=== PATIENT | female | born 1940 | race Caucasian/White ===

== ENCOUNTER 2016-03-03 11:12 | Emergency (ER) | payer MEDICARE, BC ==
[2016-03-03] MEDS ORDERED: KETOROLAC 30 MG/ML VIAL (J1885) As Ordered ONE (11:41)
[2016-03-03] MEDS ORDERED: ONDANSETRON 4MG/2ML VIAL (J2405) As Ordered ONE (11:41)
[2016-03-03 12:02] LABS: BASO % 0.2 % (0.0-1.0); EOS # 0.1 K/mm3 (0.0-0.50); EOS % 1.2 % (0.0-3.0); LARGE UNSTAINED CELL # 0.2 K/mm3 (0.0-0.4); LARGE UNSTAINED CELL % 1.3 % (0.0-4.0); LYMPH # 1.2 K/mm3 (1.5-4.5); LYMPH % 10.6 % (24.0-44.0); MEAN CORPUSCULAR HEMOGLOBIN 29.8 pg (27.0-33.0); MEAN CORPUSCULAR VOLUME 87.6 fl (80.0-96.0); MONO # 0.6 K/mm3 (0.0-0.8); MONO % 5.1 % (0.0-5.0); NEUTROPHILS # 9.3 K/mm3 (1.8-7.7); NEUTROPHILS % 81.7 % (36.0-66.0); PLATELET COUNT, AUTOMATED 262 k/mm3 (150-450); RED CELL DISTRIBUTION WIDTH 12.8 % (11.5-14.5); WHITE BLOOD COUNT 11.4 K/mm3 (4.0-10.0)
[2016-03-03 12:11] LABS: INR 1.04
[2016-03-03 12:23] LABS: ALBUMIN 3.7 GM/DL (3.2-5.2); ALBUMIN/GLOBULIN RATIO 1.16 (1.00-1.93); BILIRUBIN,DIRECT 0.1 MG/DL (0.0-0.2); BILIRUBIN,TOTAL 0.3 MG/DL (0.2-1.0); CALCIUM LEVEL 8.9 MG/DL (8.8-10.2); CREATININE FOR GFR 1.01 MG/DL (0.55-1.02); GLOMERULAR FILTRATION RATE 56.6 (>39); POTASSIUM SERUM 3.9 MEQ/L (3.5-5.1); TOTAL PROTEIN 6.9 GM/DL (6.4-8.2)
--- NOTE | 2016-03-03 12:29 | REP ---
CT ABDOMEN AND PELVIS WITHOUT IV OR ORAL CONTRAST: RENAL STONE PROTOCOL. History: Generalized abdominal pain. Comparison CT study November 14, 2013. Findings: Preliminary digital director of tax services radiograph is unremarkable. Lung window settings demonstrate that the lung bases are clear. There is no evidence of pleural effusion or upper abdominal ascites. The liver and spleen are normal in size and remain normal in texture. The gallbladder is unremarkable. No adrenal lesion is seen on either side. Pancreas has a normal appearance. There is a descending duodenal diverticulum. There is pancolonic diverticulosis. There is an area of mural thickening and mild pericolonic fat stranding in the sigmoid colon in the left pelvis consistent with diverticulitis. No abscess is seen. No evidence of free air seen. No evidence of free intraperitoneal air, abscess, or abnormal fluid collection. Normal caliber aorta is seen with atherosclerotic calcification. The kidneys are morphologically intact. No intrarenal calculus or hydronephrosis is seen on either side. No bladder calculus is observed. No bony destructive lesion is seen. No abdominal wall defect is observed. Impression: 1. Pancolonic diverticulosis. 2. Findings consistent with early diverticulitis in the sigmoid colon in the left mid pelvis. No abscess or free air. Signed by Nicholas Minor MD 03/03/2016 01:12 P
--- NOTE | 2016-03-03 13:34 | EDDOCDS ---
Nurse's Notes [facility] Name: Gisele Enriquez Age: 76 yrs Sex: Female : 1940 Arrival Date: 03/03/2016 Time: 11:12 Bed I2 / M2 Private MD: Joe Pérez MD Diagnosis: Diverticulitis of intestine, part unspecified, without perforation or abscess with bleeding Presentation: 03/03 11:16 Presenting complaint: Patient states: c/o n/v/d and abdominal pain for 5 days. Adult ead Sepsis Screening: The patient does not have new or worsening altered mentation. Patient's respiratory rate is less than 22. Systolic blood pressure is greater than 100. Patient has a qSOFA score of 0- Negative Sepsis Screen. Suicide/Homicide risk assessment- the patient denies having any suicidal and/or homicidal ideations and does not present with any other emotional, behavioral or mental health complaints. Status: Patient is not a bellhop service captain or dependent. Transition of care: patient was not received from another setting of care. 11:16 Acuity: INDIRA Level 3 ead 11:16 Method Of Arrival: Walkin/Carried/Asstd ead Triage Assessment: 11:18 General: Appears in no apparent distress, comfortable, well nourished, well groomed, ead Behavior is appropriate for age, cooperative, pleasant. Pain: Location: abdomen Pain currently is 3 out of 10 on a pain scale. Neurological: No deficits noted. Respiratory: Airway is patent Respiratory effort is even, unlabored. GI: Reports lower abdominal pain, nausea, vomiting. Derm: Skin is pink, warm & dry. Historical: - Allergies: no known allergies; - Home Meds: 1. Synthroid 75 mcg Oral tab 1 tab once daily (Last dose: 03/03/2016) 2. Vitamin D Oral 1,000 unit daily (Last dose: 03/03/2016) - PMHx: skin cancer; Hyperthyroidism; Diverticulitis; - PSHx: Hysterectomy; Appendectomy; - Social history: Smoking status: Patient states former smoker of tobacco. No barriers to communication noted, The patient speaks fluent Iraqi, Speaks appropriately for age. - Family history: Not pertinent. - : The pt / caregiver states he / she is not on anticoagulants. Home medication list is obtained from the patient. - Exposure Risk Screening:: None identified. Screenin:01 Screening information is obtained from the patient. Fall risk: No risks identified. dls Assistance ADL's: requires no assistance with activities of daily living. Abuse/DV Screen: The patient / caregiver reports he/she is: not in a situation that causes fear, pain or injury. Nutritional screening: No deficits noted. Advance Directives: Currently, there is no health care proxy. There is no active DNR order. There is no living will. There is no Power of Urban Planner. Advance directive information has not previously been placed in an [facility] medical record. home support is adequate. Assessment: 11:59 General: Appears in no apparent distress, slender, unkempt, well nourished, well dls groomed, Behavior is cooperative. Neurological: No deficits noted. EENT: No deficits noted. Cardiovascular: No deficits noted. Respiratory: Airway is patent Respiratory effort is even, unlabored, Respiratory pattern is regular, symmetrical, Breath sounds are clear bilaterally. GI: Reports lower abdominal pain, nausea, vomiting. : No deficits noted. Derm: No deficits noted. Musculoskeletal: No deficits noted. Vital Signs: 11:14 BP 146 / 78; Pulse 65; Resp 18 S; Temp 99.9(O); Pulse Ox 98% on R/A; Weight 67.59 kg gr2 (R); Height 5 ft. 6 in. (167.64 cm) (R); Pain 6/10; 13:16 BP 135 / 61 LA Sitting (auto/lg); Pulse 88; Resp 16; Temp 96.7(O); Pulse Ox 96% on R/A; rs6 Pain 2/10; 11:14 Body Mass Index 24.05 (67.59 kg, 167.64 cm) gr2 Vitals: 11:14 Log In Time: March 03, 2016 at 11:14. gr2 ED Course: 11:14 Patient visited by Luma Galaviz. gr2 11:14 Joe Pérez is Private Physician. gr2 11:14 Patient moved to Waiting gr2 11:15 Patient visited by Luma Galaviz. gr2 11:15 Patient moved to Pre RCE gr2 11:17 Triage Initiated ead 11:21 Patient moved to Triage 1 ead 11:29 [facility] ke 11:29 Patient visited by Rui Coates FNP. ke 11:29 Patient visited by Rui Coates FNP. ke 11:36 Loida Stacy, RN is Primary Nurse. rs3 11:36 Patient moved to I2 / M2 rs3 11:57 Amylase Sent. dls 11:57 Basic Metabolic Profile Sent. dls 11:57 CBC with Diff Sent. dls 11:57 Lipase Sent. dls 11:57 Liver Profile Sent. dls 11:57 Prothrombin Time Profile\E\INR Sent. dls 11:59 Inserted saline lock: 20 gauge in right antecubital area and blood collected. The dls patient tolerated the procedure well. No procedures done that require assistance. 12:01 The patient / caregiver is instructed regarding the plan of care and ED course. Patient ajit has correct armband on for positive identification. Placed in gown. Bed in low position. Call light in reach. 12:04 Patient visited by Rui Coates FNP. ke 12:37 Patient visited by Rui Coates FNP. ke 12:42 CT ABD & PELVIS: No Contrast Returned. EDMS 13:09 Patient visited by Rui Coates FNP. ke 13:16 Joe Pérez is Referral Physician. ke 13:17 Patient visited by Dinora Finney PCA. rs6 13:30 Discontinued IV lock intact, bleeding controlled, pressure dressing applied, No dls redness/swelling at site. Administered Medications: 11:57 Drug: NS 0.9% 1000 ml [sodium chloride 0.9 % intravenous solution] Route: IV; Rate: dls bolus; Site: right antecubital; 13:31 Follow up: IV Status: Completed infusion dls 11:58 Drug: Ondansetron 4 mg [ondansetron HCl 2 mg/mL intravenous solution (2 mL)] Route: dls IVP; Site: right antecubital; 13:31 Follow up: Response: No Adverse Reaction dls 11:58 Drug: ketorolac 30 mg [ketorolac 30 mg/mL (1 mL) injection solution (1 mL)] Route: IVP; dls Site: right antecubital; 13:31 Follow up: Response: No Adverse Reaction dls Order Results: Lab Order: Amylase; SPEC'M 03/03/16 11:55 Test: AMYLASE; Value: 42; Range: 25-115; Units: U/L; Status: F Lab Order: Basic Metabolic Profile; SPEC'M 03/03/16 11:55 Test: GLUCOSE, FASTING; Value: 114; Range: 83-110; Abnormal: Above high normal; Units: MG/DL; Status: F Test: BLOOD UREA NITROGEN; Value: 15; Range: 7-18; Units: MG/DL; Status: F Test: CREATININE FOR GFR; Value: 1.01; Range: 0.55-1.02; Units: MG/DL; Status: F Test: GLOMERULAR FILTRATION RATE; Value: 56.6; Range: >39; Status: F Test: SODIUM LEVEL; Value: 142; Range: 136-145; Units: MEQ/L; Status: F Test: POTASSIUM SERUM; Value: 3.9; Range: 3.5-5.1; Units: MEQ/L; Status: F Test: CHLORIDE LEVEL; Value: 104; Range: 98-107; Units: MEQ/L; Status: F Test: CARBON DIOXIDE LEVEL; Value: 26; Range: 21-32; Units: MEQ/L; Status: F Test: ANION GAP; Value: 12; Range: 8-16; Units: MEQ/L; Status: F Test: CALCIUM LEVEL; Value: 8.9; Range: 8.8-10.2; Units: MG/DL; Status: F Test Note: ; Units are mL/min/1.73 m2 Chronic Kidney Disease Staging per NKF: Stage I & II GFR >=60 Normal to Mildly Decreased Stage III GFR 30-59 Moderately Decreased Stage IV GFR 15-29 Severely Decreased Stage V GFR <15 Very Little GFR Left ESRD GFR <15 on SYSTEMS CHECKOUT MECHANIC Lab Order: CBC with Diff; SPEC'M 03/03/16 11:55 Test: WHITE BLOOD COUNT; Value: 11.4; Range: 4.0-10.0; Abnormal: Above high normal; Units: K/mm3; Status: F Test: RED BLOOD COUNT; Value: 4.69; Range: 4.00-5.40; Units: M/mm3; Status: F Test: HEMOGLOBIN; Value: 13.9; Range: 12.0-16.0; Units: g/dl; Status: F Test: HEMATOCRIT; Value: 41.0; Range: 36.0-47.0; Units: %; Status: F Test: MEAN CORPUSCULAR VOLUME; Value: 87.6; Range: 80.0-96.0; Units: fl; Status: F Test: MEAN CORPUSCULAR HEMOGLOBIN; Value: 29.8; Range: 27.0-33.0; Units: pg; Status: F Test: MEAN CORPUSCULAR HGB CONC; Value: 34.0; Range: 32.0-36.5; Units: g/dl; Status: F Test: RED CELL DISTRIBUTION WIDTH; Value: 12.8; Range: 11.5-14.5; Units: %; Status: F Test: PLATELET COUNT, AUTOMATED; Value: 262; Range: 150-450; Units: k/mm3; Status: F Test: NEUTROPHILS %; Value: 81.7; Range: 36.0-66.0; Abnormal: Above high normal; Units: %; Status: F Test: LYMPH %; Value: 10.6; Range: 24.0-44.0; Abnormal: Below low normal; Units: %; Status: F Test: MONO %; Value: 5.1; Range: 0.0-5.0; Abnormal: Above high normal; Units: %; Status: F Test: EOS %; Value: 1.2; Range: 0.0-3.0; Units: %; Status: F Test: BASO %; Value: 0.2; Range: 0.0-1.0; Units: %; Status: F Test: LARGE UNSTAINED CELL %; Value: 1.3; Range: 0.0-4.0; Units: %; Status: F Test: NEUTROPHILS #; Value: 9.3; Range: 1.8-7.7; Abnormal: Above high normal; Units: K/mm3; Status: F Test: LYMPH #; Value: 1.2; Range: 1.5-4.5; Abnormal: Below low normal; Units: K/mm3; Status: F Test: MONO #; Value: 0.6; Range: 0.0-0.8; Units: K/mm3; Status: F Test: EOS #; Value: 0.1; Range: 0.0-0.50; Units: K/mm3; Status: F Test: BASO #; Value: 0.0; Range: 0.0-0.2; Units: K/mm3; Status: F Test: LARGE UNSTAINED CELL #; Value: 0.2; Range: 0.0-0.4; Units: K/mm3; Status: F Lab Order: Lipase; [facility]' 03/03/16 11:55 Test: LIPASE; Value: 144; Range: 73-393; Units: U/L; Status: F Lab Order: Liver Profile; SPEC' 03/03/16 11:55 Test: AST/SGOT; Value: 27; Range: 15-37; Units: U/L; Status: F Test: ALT/SGPT; Value: 26; Range: 12-78; Units: U/L; Status: F Test: ALKALINE PHOSPHATASE; Value: 97; Range: 45-117; Units: U/L; Status: F Test: BILIRUBIN,TOTAL; Value: 0.3; Range: 0.2-1.0; Units: MG/DL; Status: F Test: BILIRUBIN,DIRECT; Value: 0.1; Range: 0.0-0.2; Units: MG/DL; Status: F Test: TOTAL PROTEIN; Value: 6.9; Range: 6.4-8.2; Units: GM/DL; Status: F Test: ALBUMIN; Value: 3.7; Range: 3.2-5.2; Units: GM/DL; Status: F Test: ALBUMIN/GLOBULIN RATIO; Value: 1.16; Range: 1.00-1.93; Status: F Lab Order: Prothrombin Time Profile\E\INR; SPEC 03/03/16 11:55 Test: PROTHROMBIN TIME; Value: 13.7; Range: 12.3-14.5; Units: SECONDS; Status: F Test: INR; Value: 1.04; Status: F Test Note: ; THERAPUTIC HUMAN INR VALUES INDICATIONS NORMAL RANGES PROPHYLAXIS/TREATMENT OF: VENOUS THROMBOSIS 2.0-3.0 PULMONARY EMBOLISM 2.0-3.0 PREVENTION OF SYSTEMIC EMBOLISM FROM: TISSUE HEART VALVES 2.0-3.0 ACUTE MYOCARDIAL INFARCTION 2.0-3.0 VALVULAR HEART DISEASE 2.0-3.0 ATRIAL FIBRILLATION 2.0-3.0 MECHANICAL VALVES(HIGH RISK) 2.5-3.5 RECURRENT MYOCARDIAL INFARCTION 2.5-3.5 Radiology Order: CT ABD & PELVIS: No Contrast Test: CT ABD & PELVIS: No Contrast REASON FOR EXAMINATION: Abdomen Pain; CT ABDOMEN AND PELVIS WITHOUT IV OR ORAL CONTRAST: RENAL STONE PROTOCOL.; ; History: Generalized abdominal pain.; ; Comparison CT study November 14, 2013.; ; Findings: Preliminary digital top steep tender radiograph is unremarkable. Lung window; settings demonstrate that the lung bases are clear. There is no evidence of; pleural effusion or upper abdominal ascites. The liver and spleen are normal in; size and remain normal in texture. The gallbladder is unremarkable. No adrenal; lesion is seen on either side. Pancreas has a normal appearance. There is a; descending duodenal diverticulum. There is pancolonic diverticulosis. There is; an area of mural thickening and mild pericolonic fat stranding in the sigmoid; colon in the left pelvis consistent with diverticulitis. No abscess is seen. No; evidence of free air seen. No evidence of free intraperitoneal air, abscess, or; abnormal fluid collection. Normal caliber aorta is seen with atherosclerotic; calcification.; ; The kidneys are morphologically intact. No intrarenal calculus or hydronephrosis; is seen on either side. No bladder calculus is observed.; ; No bony destructive lesion is seen. No abdominal wall defect is observed.; ; Impression:; 1. Pancolonic diverticulosis.; 2. Findings consistent with early diverticulitis in the sigmoid colon in the; left mid pelvis. No abscess or free air.; ; ; ; ; Unreviewed; Outcome: 13:17 Discharge ordered by Provider. ke 13:32 Discharge Assessment: Patient awake, alert and oriented x 3. No cognitive and/or dls functional deficits noted. Patient verbalized understanding of disposition instructions. patient administered narcotics - no. The following High Risk Discharge criteria are identified: None. Discharged to home ambulatory. Condition: stable Condition: improved. Discharge instructions given to patient, Instructed on discharge instructions, follow up and referral plans. medication usage, Demonstrated understanding of instructions, medications, Pt was receptive of discharge instructions/ teaching. Prescriptions given X 4. CT Study completed. Property sent home with patient. 13:33 Patient left the ED. dls Signatures: Dispatcher [employer] EDMS Loida Stacy RN RN dls Rui Coates, LAMBERTO GALLEGOSP Isabel Alegre RN RN rs3 Luma Galaviz gr2 Violeta Saravia RN RN ead Reg, Dinora, NET APPLICATIONS DEVELOPER NET APPLICATIONS DEVELOPER rs6 MTDD
--- NOTE | 2016-03-03 13:34 | EDDOCDS ---
Physician Documentation [facility] Name: Gisele Enriquez Age: 76 yrs Sex: Female : 1940 Arrival Date: 03/03/2016 Time: 11:12 Bed I2 / M2 Private MD: Joe Pérez MD Disposition: 03/03/16 13:17 Discharged to Home/Self Care. Impression: Diverticulitis of intestine, part unspecified, without perforation or abscess with bleeding. - Condition is Stable. - Discharge Instructions: Diverticulitis. - Prescriptions for Cipro 500 mg Oral Tablet - take 1 tablet by ORAL route every 12 hours; 20 tablet. Flagyl 500 mg Oral Tablet - take 1 tablet by ORAL route every 8 hours for 10 days; 30 tablet. Arvilla 5- 325 mg Oral Tablet - take 1 tablet by ORAL route every 6 hours As needed MDD: 4 tabs; 20 tablet. Zofran 4 mg Oral Tablet - take 1 tablet by ORAL route 4 times per day As needed; 15 tablet. - Medication Reconciliation, Local Pharmacy Hours form. - Follow up: Joe Pérez; When: 4 - 5 days; Reason: Recheck today's complaints, Continuance of care. - Problem is an acute exacerbation. - Symptoms are unchanged. Historical: - Allergies: no known allergies; - Home Meds: 1. Synthroid 75 mcg Oral tab 1 tab once daily (Last dose: 03/03/2016) 2. Vitamin D Oral 1,000 unit daily (Last dose: 03/03/2016) - PMHx: skin cancer; Hyperthyroidism; Diverticulitis; - PSHx: Hysterectomy; Appendectomy; - Social history: Smoking status: Patient states former smoker of tobacco. No barriers to communication noted, The patient speaks fluent [place], Speaks appropriately for age. - Family history: Not pertinent. - : The pt / caregiver states he / she is not on anticoagulants. Home medication list is obtained from the patient. - Exposure Risk Screening:: None identified. Vital Signs: 03/03 11:14 BP 146 / 78; Pulse 65; Resp 18 S; Temp 99.9(O); Pulse Ox 98% on R/A; Weight 67.59 kg / gr2 149.01 lbs (R); Height 5 ft. 6 in. (167.64 cm) (R); Pain 6/10; 13:16 BP 135 / 61 LA Sitting (auto/lg); Pulse 88; Resp 16; Temp 96.7(O); Pulse Ox 96% on R/A; rs6 Pain 2/10; 11:14 Body Mass Index 24.05 (67.59 kg, 167.64 cm) gr2 MDM: 11:35 NS 0.9% 1000 ml IV at bolus once ordered. ke 11:35 Ondansetron 4 mg IVP once ordered. ke 11:35 ketorolac 30 mg IVP once ordered. ke 11:35 IV Saline Lock ordered. ke 11:35 Undress patient appropriately for examination ordered. ke 11:35 Amylase Ordered. EDMS 11:35 Basic Metabolic Profile Ordered. EDMS 11:35 CBC with Diff Ordered. EDMS 11:35 Lipase Ordered. EDMS 11:35 Liver Profile Ordered. EDMS 11:35 Prothrombin Time Profile\E\INR Ordered. EDMS 11:36 Financial registration complete. lg 11:36 CT ABD & PELVIS: No Contrast Ordered. EDMS 11:37 NOTHING BY MOUTH+DIET ordered. EDMS 12:37 Basic Metabolic Profile Reviewed. ke 12:37 CBC with Diff Reviewed. ke 12:37 Amylase Reviewed. ke 12:37 Lipase Reviewed. ke 12:37 Liver Profile Reviewed. ke 12:37 Prothrombin Time Profile\E\INR Reviewed. ke Administered Medications: 11:57 Drug: NS 0.9% 1000 ml [sodium chloride 0.9 % intravenous solution] Route: IV; Rate: dls bolus; Site: right antecubital; 13:31 Follow up: IV Status: Completed infusion dls 11:58 Drug: Ondansetron 4 mg [ondansetron HCl 2 mg/mL intravenous solution (2 mL)] Route: dls IVP; Site: right antecubital; 13:31 Follow up: Response: No Adverse Reaction dls 11:58 Drug: ketorolac 30 mg [ketorolac 30 mg/mL (1 mL) injection solution (1 mL)] Route: IVP; dls Site: right antecubital; 13:31 Follow up: Response: No Adverse Reaction dls Signatures: Dispatcher [employer] Loida Foreman RN RN dls Laurie Shanks, [place] Reg Rui Ro, CONTESTANT COORDINATOR CONTESTANT COORDINATOR Violeta Venegas RN RN ead MTDD
--- NOTE | 2016-03-05 14:34 | EDDOCDS ---
Physician Documentation [facility] Name: Gisele Enriquez Age: 76 yrs Sex: Female : 1940 Arrival Date: 03/03/2016 Time: 11:12 Bed I2 / M2 Private MD: Joe Pérez MD Disposition: 03/03/16 13:17 Discharged to Home/Self Care. Impression: Diverticulitis of intestine, part unspecified, without perforation or abscess with bleeding. - Condition is Stable. - Discharge Instructions: Diverticulitis. - Prescriptions for Cipro 500 mg Oral Tablet - take 1 tablet by ORAL route every 12 hours; 20 tablet. Flagyl 500 mg Oral Tablet - take 1 tablet by ORAL route every 8 hours for 10 days; 30 tablet. Henderson 5- 325 mg Oral Tablet - take 1 tablet by ORAL route every 6 hours As needed MDD: 4 tabs; 20 tablet. Zofran 4 mg Oral Tablet - take 1 tablet by ORAL route 4 times per day As needed; 15 tablet. - Medication Reconciliation, Local Pharmacy Hours form. - Follow up: Joe Pérez; When: 4 - 5 days; Reason: Recheck today's complaints, Continuance of care. - Problem is an acute exacerbation. - Symptoms are unchanged. Historical: - Allergies: no known allergies; - Home Meds: 1. Synthroid 75 mcg Oral tab 1 tab once daily (Last dose: 03/03/2016) 2. Vitamin D Oral 1,000 unit daily (Last dose: 03/03/2016) - PMHx: skin cancer; Hyperthyroidism; Diverticulitis; - PSHx: Hysterectomy; Appendectomy; - Social history: Smoking status: Patient states former smoker of tobacco. No barriers to communication noted, The patient speaks fluent [place], Speaks appropriately for age. - Family history: Not pertinent. - : The pt / caregiver states he / she is not on anticoagulants. Home medication list is obtained from the patient. - Exposure Risk Screening:: None identified. Vital Signs: 03/03 11:14 BP 146 / 78; Pulse 65; Resp 18 S; Temp 99.9(O); Pulse Ox 98% on R/A; Weight 67.59 kg / gr2 149.01 lbs (R); Height 5 ft. 6 in. (167.64 cm) (R); Pain 6/10; 13:16 BP 135 / 61 LA Sitting (auto/lg); Pulse 88; Resp 16; Temp 96.7(O); Pulse Ox 96% on R/A; rs6 Pain 2/10; 11:14 Body Mass Index 24.05 (67.59 kg, 167.64 cm) gr2 MDM: 11:35 NS 0.9% 1000 ml IV at bolus once ordered. ke 11:35 Ondansetron 4 mg IVP once ordered. ke 11:35 ketorolac 30 mg IVP once ordered. ke 11:35 IV Saline Lock ordered. ke 11:35 Undress patient appropriately for examination ordered. ke 11:35 Amylase Ordered. EDMS 11:35 Basic Metabolic Profile Ordered. EDMS 11:35 CBC with Diff Ordered. EDMS 11:35 Lipase Ordered. EDMS 11:35 Liver Profile Ordered. EDMS 11:35 Prothrombin Time Profile\E\INR Ordered. EDMS 11:36 Financial registration complete. lg 11:36 CT ABD & PELVIS: No Contrast Ordered. EDMS 11:37 NOTHING BY MOUTH+DIET ordered. EDMS 12:37 Basic Metabolic Profile Reviewed. ke 12:37 CBC with Diff Reviewed. ke 12:37 Amylase Reviewed. ke 12:37 Lipase Reviewed. ke 12:37 Liver Profile Reviewed. ke 12:37 Prothrombin Time Profile\E\INR Reviewed. ke 13:45 [facility] Payment Agreement was scanned into [employer] and attached to record. 03/04 02:23 T-Sheet-- Draft Copy was scanned into [employer] and attached to record. hs2 Administered Medications: 03/03 11:57 Drug: NS 0.9% 1000 ml [sodium chloride 0.9 % intravenous solution] Route: IV; Rate: dls bolus; Site: right antecubital; 13:31 Follow up: IV Status: Completed infusion dls 11:58 Drug: Ondansetron 4 mg [ondansetron HCl 2 mg/mL intravenous solution (2 mL)] Route: dls IVP; Site: right antecubital; 13:31 Follow up: Response: No Adverse Reaction dls 11:58 Drug: ketorolac 30 mg [ketorolac 30 mg/mL (1 mL) injection solution (1 mL)] Route: IVP; dls Site: right antecubital; 13:31 Follow up: Response: No Adverse Reaction dls Signatures: Dispatcher [employer] Loida Foreman, MOLLY RN dls Laurie Shanks, Reg Reg lg Rui Coates, CARD CUTTER HELPER Violeta Patel RN RN Leeann Larsen, Reg Reg hs2 The chart was reviewed and I authenticate all verbal orders and agree with the evaluation and treatment provided.Attachments: 13:45 [facility] Payment Agreement lg 03/04 02:23 T-Sheet-- Draft Copy hs2 Chart Complete MTDD
--- NOTE | 2016-03-05 14:34 | EDDOCDS ---
Physician Documentation [facility] Name: Gisele Enriquez Age: 76 yrs Sex: Female : 1940 Arrival Date: 03/03/2016 Time: 11:12 Bed I2 / M2 Private MD: Joe Pérez MD Disposition: 03/03/16 13:17 Discharged to Home/Self Care. Impression: Diverticulitis of intestine, part unspecified, without perforation or abscess with bleeding. - Condition is Stable. - Discharge Instructions: Diverticulitis. - Prescriptions for Cipro 500 mg Oral Tablet - take 1 tablet by ORAL route every 12 hours; 20 tablet. Flagyl 500 mg Oral Tablet - take 1 tablet by ORAL route every 8 hours for 10 days; 30 tablet. [place] 5- 325 mg Oral Tablet - take 1 tablet by ORAL route every 6 hours As needed MDD: 4 tabs; 20 tablet. Zofran 4 mg Oral Tablet - take 1 tablet by ORAL route 4 times per day As needed; 15 tablet. - Medication Reconciliation, Local Pharmacy Hours form. - Follow up: Joe Pérez; When: 4 - 5 days; Reason: Recheck today's complaints, Continuance of care. - Problem is an acute exacerbation. - Symptoms are unchanged. Historical: - Allergies: no known allergies; - Home Meds: 1. Synthroid 75 mcg Oral tab 1 tab once daily (Last dose: 03/03/2016) 2. Vitamin D Oral 1,000 unit daily (Last dose: 03/03/2016) - PMHx: skin cancer; Hyperthyroidism; Diverticulitis; - PSHx: Hysterectomy; Appendectomy; - Social history: Smoking status: Patient states former smoker of tobacco. No barriers to communication noted, The patient speaks fluent Solomon Islander, Speaks appropriately for age. - Family history: Not pertinent. - : The pt / caregiver states he / she is not on anticoagulants. Home medication list is obtained from the patient. - Exposure Risk Screening:: None identified. Vital Signs: 03/03 11:14 BP 146 / 78; Pulse 65; Resp 18 S; Temp 99.9(O); Pulse Ox 98% on R/A; Weight 67.59 kg / gr2 149.01 lbs (R); Height 5 ft. 6 in. (167.64 cm) (R); Pain 6/10; 13:16 BP 135 / 61 LA Sitting (auto/lg); Pulse 88; Resp 16; Temp 96.7(O); Pulse Ox 96% on R/A; rs6 Pain 2/10; 11:14 Body Mass Index 24.05 (67.59 kg, 167.64 cm) gr2 MDM: 11:35 NS 0.9% 1000 ml IV at bolus once ordered. ke 11:35 Ondansetron 4 mg IVP once ordered. ke 11:35 ketorolac 30 mg IVP once ordered. ke 11:35 IV Saline Lock ordered. ke 11:35 Undress patient appropriately for examination ordered. ke 11:35 Amylase Ordered. EDMS 11:35 Basic Metabolic Profile Ordered. EDMS 11:35 CBC with Diff Ordered. EDMS 11:35 Lipase Ordered. EDMS 11:35 Liver Profile Ordered. EDMS 11:35 Prothrombin Time Profile\E\INR Ordered. EDMS 11:36 Financial registration complete. lg 11:36 CT ABD & PELVIS: No Contrast Ordered. EDMS 11:37 NOTHING BY MOUTH+DIET ordered. EDMS 12:37 Basic Metabolic Profile Reviewed. ke 12:37 CBC with Diff Reviewed. ke 12:37 Amylase Reviewed. ke 12:37 Lipase Reviewed. ke 12:37 Liver Profile Reviewed. ke 12:37 Prothrombin Time Profile\E\INR Reviewed. ke 13:45 [facility] [place] was scanned into [employer] and attached to record. 03/04 02:23 T-Sheet-- Draft Copy was scanned into [employer] and attached to record. hs2 Administered Medications: 03/03 11:57 Drug: NS 0.9% 1000 ml [sodium chloride 0.9 % intravenous solution] Route: IV; Rate: dls bolus; Site: right antecubital; 13:31 Follow up: IV Status: Completed infusion dls 11:58 Drug: Ondansetron 4 mg [ondansetron HCl 2 mg/mL intravenous solution (2 mL)] Route: dls IVP; Site: right antecubital; 13:31 Follow up: Response: No Adverse Reaction dls 11:58 Drug: ketorolac 30 mg [ketorolac 30 mg/mL (1 mL) injection solution (1 mL)] Route: IVP; dls Site: right antecubital; 13:31 Follow up: Response: No Adverse Reaction dls Signatures: Dispatcher [employer] Loida Foreman, MOLLY RN dls Laurie Shanks, Reg Reg lg Rui Coates, PCI SECURITY CONSULTANT Violeta Patel RN RN Leeann Larsen, Reg Reg hs2 The chart was reviewed and I authenticate all verbal orders and agree with the evaluation and treatment provided.Attachments: 13:45 [facility] Payment Agreement lg 03/04 02:23 T-Sheet-- Draft Copy hs2 Chart Complete MTDD
--- NOTE | 2016-03-05 14:34 | EDDOCDS ---
Nurse's Notes [facility] Name: Gisele Enriquez Age: 76 yrs Sex: Female : 1940 Arrival Date: 03/03/2016 Time: 11:12 Bed I2 / M2 Private MD: Joe Pérez MD Diagnosis: Diverticulitis of intestine, part unspecified, without perforation or abscess with bleeding Presentation: 03/03 11:16 Presenting complaint: Patient states: c/o n/v/d and abdominal pain for 5 days. Adult ead Sepsis Screening: The patient does not have new or worsening altered mentation. Patient's respiratory rate is less than 22. Systolic blood pressure is greater than 100. Patient has a qSOFA score of 0- Negative Sepsis Screen. Suicide/Homicide risk assessment- the patient denies having any suicidal and/or homicidal ideations and does not present with any other emotional, behavioral or mental health complaints. Status: Patient is not a guest service supervisor or dependent. Transition of care: patient was not received from another setting of care. 11:16 Acuity: INDIRA Level 3 ead 11:16 Method Of Arrival: Walkin/Carried/Asstd ead Triage Assessment: 11:18 General: Appears in no apparent distress, comfortable, well nourished, well groomed, ead Behavior is appropriate for age, cooperative, pleasant. Pain: Location: abdomen Pain currently is 3 out of 10 on a pain scale. Neurological: No deficits noted. Respiratory: Airway is patent Respiratory effort is even, unlabored. GI: Reports lower abdominal pain, nausea, vomiting. Derm: Skin is pink, warm & dry. Historical: - Allergies: no known allergies; - Home Meds: 1. Synthroid 75 mcg Oral tab 1 tab once daily (Last dose: 03/03/2016) 2. Vitamin D Oral 1,000 unit daily (Last dose: 03/03/2016) - PMHx: skin cancer; Hyperthyroidism; Diverticulitis; - PSHx: Hysterectomy; Appendectomy; - Social history: Smoking status: Patient states former smoker of tobacco. No barriers to communication noted, The patient speaks fluent Mauritanian, Speaks appropriately for age. - Family history: Not pertinent. - : The pt / caregiver states he / she is not on anticoagulants. Home medication list is obtained from the patient. - Exposure Risk Screening:: None identified. Screenin:01 Screening information is obtained from the patient. Fall risk: No risks identified. dls Assistance ADL's: requires no assistance with activities of daily living. Abuse/DV Screen: The patient / caregiver reports he/she is: not in a situation that causes fear, pain or injury. Nutritional screening: No deficits noted. Advance Directives: Currently, there is no health care proxy. There is no active DNR order. There is no living will. There is no Power of Registered Nursing Professor. Advance directive information has not previously been placed in an [facility] medical record. home support is adequate. Assessment: 11:59 General: Appears in no apparent distress, slender, unkempt, well nourished, well dls groomed, Behavior is cooperative. Neurological: No deficits noted. EENT: No deficits noted. Cardiovascular: No deficits noted. Respiratory: Airway is patent Respiratory effort is even, unlabored, Respiratory pattern is regular, symmetrical, Breath sounds are clear bilaterally. GI: Reports lower abdominal pain, nausea, vomiting. : No deficits noted. Derm: No deficits noted. Musculoskeletal: No deficits noted. Vital Signs: 11:14 BP 146 / 78; Pulse 65; Resp 18 S; Temp 99.9(O); Pulse Ox 98% on R/A; Weight 67.59 kg gr2 (R); Height 5 ft. 6 in. (167.64 cm) (R); Pain 6/10; 13:16 BP 135 / 61 LA Sitting (auto/lg); Pulse 88; Resp 16; Temp 96.7(O); Pulse Ox 96% on R/A; rs6 Pain 2/10; 11:14 Body Mass Index 24.05 (67.59 kg, 167.64 cm) gr2 Vitals: 11:14 Log In Time: March 03, 2016 at 11:14. gr2 ED Course: 11:14 Patient visited by Luma Galaviz. gr2 11:14 Joe Pérez is Private Physician. gr2 11:14 Patient moved to Waiting gr2 11:15 Patient visited by Luam Galaviz. gr2 11:15 Patient moved to Pre RCE gr2 11:17 Triage Initiated ead 11:21 Patient moved to Triage 1 ead 11:29 [facility]ates FNP [facility]. ke 11:29 Patient visited by Rui Coates FNP. ke 11:29 Patient visited by Rui Coates FNP. ke 11:36 Loida Stacy, RN is Primary Nurse. rs3 11:36 Patient moved to I2 / M2 rs3 11:57 Amylase Sent. dls 11:57 Basic Metabolic Profile Sent. dls 11:57 CBC with Diff Sent. dls 11:57 Lipase Sent. dls 11:57 Liver Profile Sent. dls 11:57 Prothrombin Time Profile\E\INR Sent. dls 11:59 Inserted saline lock: 20 gauge in right antecubital area and blood collected. The dls patient tolerated the procedure well. No procedures done that require assistance. 12:01 The patient / caregiver is instructed regarding the plan of care and ED course. Patient ajit has correct armband on for positive identification. Placed in gown. Bed in low position. Call light in reach. 12:04 Patient visited by Rui Coates FNP. ke 12:37 Patient visited by Rui Coates FNP. ke 12:42 CT ABD & PELVIS: No Contrast Returned. EDMS 13:09 Patient visited by Rui Coates FNP. ke 13:16 Joe Pérez is Referral Physician. ke 13:17 Patient visited by Dinora Finney PCA. rs6 13:30 Discontinued IV lock intact, bleeding controlled, pressure dressing applied, No dls redness/swelling at site. 13:43 Patient name changed from Gisele\S\\S\Mina\S\ to Gisele\S\ \S\Mina. EDMS 13:45 [facility] [place] Agreement was scanned into [employer] and attached to record. 03/04 02:23 T-Sheet-- Draft Copy was scanned into [employer] and attached to record. hs2 Administered Medications: 03/03 11:57 Drug: NS 0.9% 1000 ml [sodium chloride 0.9 % intravenous solution] Route: IV; Rate: dls bolus; Site: right antecubital; 13:31 Follow up: IV Status: Completed infusion dls 11:58 Drug: Ondansetron 4 mg [ondansetron HCl 2 mg/mL intravenous solution (2 mL)] Route: dls IVP; Site: right antecubital; 13:31 Follow up: Response: No Adverse Reaction [facility] 11:58 Drug: ketorolac 30 mg [ketorolac 30 mg/mL (1 mL) injection solution (1 mL)] Route: IVP; dls Site: right antecubital; 13:31 Follow up: Response: No Adverse Reaction dls Order Results: Lab Order: Amylase; SPEC'03/03/16 11:55 Test: AMYLASE; Value: 42; Range: 25-115; Units: U/L; Status: F Lab Order: Basic Metabolic Profile; SPEC03/03/16 11:55 Test: GLUCOSE, FASTING; Value: 114; Range: 83-110; Abnormal: Above high normal; Units: MG/DL; Status: F Test: BLOOD UREA NITROGEN; Value: 15; Range: 7-18; Units: MG/DL; Status: F Test: CREATININE FOR GFR; Value: 1.01; Range: 0.55-1.02; Units: MG/DL; Status: F Test: GLOMERULAR FILTRATION RATE; Value: 56.6; Range: >39; Status: F Test: SODIUM LEVEL; Value: 142; Range: 136-145; Units: MEQ/L; Status: F Test: POTASSIUM SERUM; Value: 3.9; Range: 3.5-5.1; Units: MEQ/L; Status: F Test: CHLORIDE LEVEL; Value: 104; Range: 98-107; Units: MEQ/L; Status: F Test: CARBON DIOXIDE LEVEL; Value: 26; Range: 21-32; Units: MEQ/L; Status: F Test: ANION GAP; Value: 12; Range: 8-16; Units: MEQ/L; Status: F Test: CALCIUM LEVEL; Value: 8.9; Range: 8.8-10.2; Units: MG/DL; Status: F Test Note: ; Units are mL/min/1.73 m2 Chronic Kidney Disease Staging per NKF: Stage I & II GFR >=60 Normal to Mildly Decreased Stage III GFR 30-59 Moderately Decreased Stage IV GFR 15-29 Severely Decreased Stage V GFR <15 Very Little GFR Left ESRD GFR <15 on KARATE TEACHER Lab Order: CBC with Diff; SPEC03/03/16 11:55 Test: WHITE BLOOD COUNT; Value: 11.4; Range: 4.0-10.0; Abnormal: Above high normal; Units: K/mm3; Status: F Test: RED BLOOD COUNT; Value: 4.69; Range: 4.00-5.40; Units: M/mm3; Status: F Test: HEMOGLOBIN; Value: 13.9; Range: 12.0-16.0; Units: g/dl; Status: F Test: HEMATOCRIT; Value: 41.0; Range: 36.0-47.0; Units: %; Status: F Test: MEAN CORPUSCULAR VOLUME; Value: 87.6; Range: 80.0-96.0; Units: fl; Status: F Test: MEAN CORPUSCULAR HEMOGLOBIN; Value: 29.8; Range: 27.0-33.0; Units: pg; Status: F Test: MEAN CORPUSCULAR HGB CONC; Value: 34.0; Range: 32.0-36.5; Units: g/dl; Status: F Test: RED CELL DISTRIBUTION WIDTH; Value: 12.8; Range: 11.5-14.5; Units: %; Status: F Test: PLATELET COUNT, AUTOMATED; Value: 262; Range: 150-450; Units: k/mm3; Status: F Test: NEUTROPHILS %; Value: 81.7; Range: 36.0-66.0; Abnormal: Above high normal; Units: %; Status: F Test: LYMPH %; Value: 10.6; Range: 24.0-44.0; Abnormal: Below low normal; Units: %; Status: F Test: MONO %; Value: 5.1; Range: 0.0-5.0; Abnormal: Above high normal; Units: %; Status: F Test: EOS %; Value: 1.2; Range: 0.0-3.0; Units: %; Status: F Test: BASO %; Value: 0.2; Range: 0.0-1.0; Units: %; Status: F Test: LARGE UNSTAINED CELL %; Value: 1.3; Range: 0.0-4.0; Units: %; Status: F Test: NEUTROPHILS #; Value: 9.3; Range: 1.8-7.7; Abnormal: Above high normal; Units: K/mm3; Status: F Test: LYMPH #; Value: 1.2; Range: 1.5-4.5; Abnormal: Below low normal; Units: K/mm3; Status: F Test: MONO #; Value: 0.6; Range: 0.0-0.8; Units: K/mm3; Status: F Test: EOS #; Value: 0.1; Range: 0.0-0.50; Units: K/mm3; Status: F Test: BASO #; Value: 0.0; Range: 0.0-0.2; Units: K/mm3; Status: F Test: LARGE UNSTAINED CELL #; Value: 0.2; Range: 0.0-0.4; Units: K/mm3; Status: F Lab Order: Lipase; SPEC' 03/03/16 11:55 Test: LIPASE; Value: 144; Range: 73-393; Units: U/L; Status: F Lab Order: Liver Profile; [facility] 03/03/16 11:55 Test: AST/SGOT; Value: 27; Range: 15-37; Units: U/L; Status: F Test: ALT/SGPT; Value: 26; Range: 12-78; Units: U/L; Status: F Test: ALKALINE PHOSPHATASE; Value: 97; Range: 45-117; Units: U/L; Status: F Test: BILIRUBIN,TOTAL; Value: 0.3; Range: 0.2-1.0; Units: MG/DL; Status: F Test: BILIRUBIN,DIRECT; Value: 0.1; Range: 0.0-0.2; Units: MG/DL; Status: F Test: TOTAL PROTEIN; Value: 6.9; Range: 6.4-8.2; Units: GM/DL; Status: F Test: ALBUMIN; Value: 3.7; Range: 3.2-5.2; Units: GM/DL; Status: F Test: ALBUMIN/GLOBULIN RATIO; Value: 1.16; Range: 1.00-1.93; Status: F Lab Order: Prothrombin Time Profile\E\INR; [facility] 03/03/16 11:55 Test: PROTHROMBIN TIME; Value: 13.7; Range: 12.3-14.5; Units: SECONDS; Status: F Test: INR; Value: 1.04; Status: F Test Note: ; THERAPUTIC HUMAN INR VALUES INDICATIONS NORMAL RANGES PROPHYLAXIS/TREATMENT OF: VENOUS THROMBOSIS 2.0-3.0 PULMONARY EMBOLISM 2.0-3.0 PREVENTION OF SYSTEMIC EMBOLISM FROM: TISSUE HEART VALVES 2.0-3.0 ACUTE MYOCARDIAL INFARCTION 2.0-3.0 VALVULAR HEART DISEASE 2.0-3.0 ATRIAL FIBRILLATION 2.0-3.0 MECHANICAL VALVES(HIGH RISK) 2.5-3.5 RECURRENT MYOCARDIAL INFARCTION 2.5-3.5 Radiology Order: CT ABD & PELVIS: No Contrast Test: CT ABD & PELVIS: No Contrast REASON FOR EXAMINATION: Abdomen Pain; CT ABDOMEN AND PELVIS WITHOUT IV OR ORAL CONTRAST: RENAL STONE PROTOCOL.; ; History: Generalized abdominal pain.; ; Comparison CT study November 14, 2013.; ; Findings: Preliminary digital acquisition associate radiograph is unremarkable. Lung window; settings demonstrate that the lung bases are clear. There is no evidence of; pleural effusion or upper abdominal ascites. The liver and spleen are normal in; size and remain normal in texture. The gallbladder is unremarkable. No adrenal; lesion is seen on either side. Pancreas has a normal appearance. There is a; descending duodenal diverticulum. There is pancolonic diverticulosis. There is; an area of mural thickening and mild pericolonic fat stranding in the sigmoid; colon in the left pelvis consistent with diverticulitis. No abscess is seen. No; evidence of free air seen. No evidence of free intraperitoneal air, abscess, or; abnormal fluid collection. Normal caliber aorta is seen with atherosclerotic; calcification.; ; The kidneys are morphologically intact. No intrarenal calculus or hydronephrosis; is seen on either side. No bladder calculus is observed.; ; No bony destructive lesion is seen. No abdominal wall defect is observed.; ; Impression:; ; 1. Pancolonic diverticulosis.; ; 2. Findings consistent with early diverticulitis in the sigmoid colon in the; left mid pelvis. No abscess or free air.; ; ; Signed by; Nicholas Minor MD 03/03/2016 01:12 P; Outcome: 13:17 Discharge ordered by Provider. sang 13:32 Discharge Assessment: Patient awake, alert and oriented x 3. No cognitive and/or dls functional deficits noted. Patient verbalized understanding of disposition instructions. patient administered narcotics - no. The following High Risk Discharge criteria are identified: None. Discharged to home ambulatory. Condition: stable Condition: improved. Discharge instructions given to patient, Instructed on discharge instructions, follow up and referral plans. medication usage, Demonstrated understanding of instructions, medications, Pt was receptive of discharge instructions/ teaching. Prescriptions given X 4. CT Study completed. Property sent home with patient. 13:33 Patient left the ED. dls Signatures: Dispatcher [employer] EDLoida Cummings, RN RN dls Laurie Shanks, Reg Reg lg Rui Coates, GOLD CHARMER GOLD CHARMER Isabel AlegreRN RN rs3 Luma Galaviz gr2 Violeta SaraviaRN RN Dinora Martinez, ALGORITHM DESIGN ENGINEER ALGORITHM DESIGN ENGINEER rs6 Leeann Quigley, Reg Reg hs2 Chart Complete MTDD
== END 2016-03-03 11:21 | disposition home or self-care (01) ==
LOC: M ED 11:12
DX: K57.32 Diverticulitis of large intestine without perforation or abscess without bleeding (principal); E05.90 Thyrotoxicosis, unspecified without thyrotoxic crisis or storm; Z87.891 Personal history of nicotine dependence; Z85.828 Personal history of other malignant neoplasm of skin; Z79.899 Other long term (current) drug therapy
CPT/HCPCS: 36415; 74176; 80048; 80076; 82150; 83690; 85025; 85610; 96361; 96374; 96375; 99284; J1885; J2405

== ENCOUNTER → 2016-05-05 | Outpatient (CLI) | payer MEDICARE, BC ==
--- NOTE | 2016-05-05 15:18 | REPMRS ---
Patient History The patient states she has not had a clinical breast exam in over a year. Patient is postmenopausal and has history of other cancer at age 59. No known family history of cancer. Digital Woman Screen Mammo: May 05, 2016 - Exam #: [id number] Bilateral CC and MLO view(s) were taken. Technologist: Shelli Gonzalez, Technologist Prior study comparison: April 24, 2015, digital woman screen mammo performed at [facility]. March 24, 2014, digital woman screen mammo performed at [facility] to [facility]. January 27, 2013, digital woman screen mammo performed at [facility] to [facility]. FINDINGS: There are scattered fibroglandular densities. There is a moderate amount of residual fibroglandular tissue which is fairly symmetric. There is no interval development of dominant mass, architectural distortion, or clustered microcalcification typical of malignancy. There has been no change in the appearance of the mammogram from the prior studies. ASSESSMENT: BI-RADS/ACR category 1 mammogram. Negative. Recommendation Routine screening mammogram of both breasts in 1 year (for women over age 40). This mammogram was interpreted with the aid of an FDA-approved computer-aided dectection system. Electronically Signed By: Karthik Minor MD 05/05/16 0517
== END ==
LOC: M WHC 12:42
PROVIDERS: ATTEND Family Medicine
DX: Z12.31 Encounter for screening mammogram for malignant neoplasm of breast (principal)

== ENCOUNTER → 2016-07-16 | Outpatient (REF) | payer MEDICARE, BC ==
[2016-07-16 12:53] LABS: ALBUMIN/GLOBULIN RATIO 1.43 (1.00-1.93); ALKALINE PHOSPHATASE 92 U/L (45-117); ALT/SGPT 23 U/L (12-78); ANION GAP 7 MEQ/L (8-16); AST/SGOT 20 U/L (15-37); BILIRUBIN,TOTAL 0.5 MG/DL (0.2-1.0); BLOOD UREA NITROGEN 13 MG/DL (7-18); CALCIUM LEVEL 9.8 MG/DL (8.8-10.2); CARBON DIOXIDE LEVEL 28 MEQ/L (21-32); CHLORIDE LEVEL 105 MEQ/L (98-107); CHOLESTEROL LEVEL 254 MG/DL (<200); CREATININE FOR GFR 0.84 MG/DL (0.55-1.02); FREE T4 1.18 NG/DL (0.76-1.46); GLOMERULAR FILTRATION RATE > 60.0 (>39); GLUCOSE, FASTING 86 MG/DL (83-110); POTASSIUM SERUM 4.2 MEQ/L (3.5-5.1); SODIUM LEVEL 140 MEQ/L (136-145); TOTAL PROTEIN 6.8 GM/DL (6.4-8.2); TRIGLYCERIDES LEVEL 169 MG/DL (<150)
== END ==
LOC: M SFHCPLAZ 09:17
PROVIDERS: ATTEND Family Medicine
DX: E03.9 Hypothyroidism, unspecified (principal); E78.2 Mixed hyperlipidemia

== ENCOUNTER → 2016-11-18 | Outpatient (REF) | LOC: M LAB 12:10 | PROVIDERS: ATTEND Nurse Practitioner Adult Health | DX: Z11.59 Encounter for screening for other viral diseases (principal) ==

== ENCOUNTER → 2016-12-11 | Outpatient (REF) | payer MEDICARE, BC | LOC: M LAB REF 09:45 | PROVIDERS: ATTEND Physician Assistant | DX: J02.9 Acute pharyngitis, unspecified (principal) ==

== ENCOUNTER → 2017-01-12 | Outpatient (REF) | payer MEDICARE, BC ==
[2017-01-12 12:27] LABS: MEAN CORPUSCULAR HEMOGLOBIN 30.1 pg (27.0-33.0); MEAN CORPUSCULAR HGB CONC 32.8 g/dl (32.0-36.5); MEAN CORPUSCULAR VOLUME 91.7 fl (80.0-96.0); PLATELET COUNT, AUTOMATED 296 10^3/uL (150-450); RED CELL DISTRIBUTION WIDTH 13.4 % (11.5-14.5); WHITE BLOOD COUNT 7.8 10^3/uL (4.0-10.0)
[2017-01-12 13:51] LABS: ALBUMIN 3.7 GM/DL (3.2-5.2); ALBUMIN/GLOBULIN RATIO 1.28 (1.00-1.93); ALKALINE PHOSPHATASE 91 U/L (45-117); ALT/SGPT 21 U/L (12-78); ANION GAP 6 MEQ/L (8-16); AST/SGOT 18 U/L (7-37); BILIRUBIN,TOTAL 0.5 MG/DL (0.2-1.0); BLOOD UREA NITROGEN 17 MG/DL (7-18); CALCIUM LEVEL 9.5 MG/DL (8.8-10.2); CARBON DIOXIDE LEVEL 29 MEQ/L (21-32); CHLORIDE LEVEL 107 MEQ/L (98-107); CHOLESTEROL LEVEL 225 MG/DL (<200); CREATININE FOR GFR 0.86 MG/DL (0.55-1.02); FREE T4 1.01 NG/DL (0.76-1.46); GLOMERULAR FILTRATION RATE > 60.0 (>39); GLUCOSE, FASTING 89 MG/DL (83-110); POTASSIUM SERUM 4.6 MEQ/L (3.5-5.1); SODIUM LEVEL 142 MEQ/L (136-145); TOTAL PROTEIN 6.6 GM/DL (6.4-8.2); TRIGLYCERIDES LEVEL 177 MG/DL (<150)
[2017-01-12 14:01] LABS: VITAMIN B12 LEVEL 390 PG/ML (247-911)
== END ==
LOC: M SFHCPLAZ 08:43
PROVIDERS: ATTEND Family Medicine
DX: H81.20 Vestibular neuronitis, unspecified ear (principal); E78.2 Mixed hyperlipidemia; E03.9 Hypothyroidism, unspecified

== ENCOUNTER 2017-04-23 07:09 | Day surgery (SDC) | payer MEDICARE, BC ==
[2017-04-23] MEDS ORDERED: LIDOCAINE 1% MDV 20ML VIAL SQ ×2 (07:30)
[2017-04-23] MEDS: PROPARACAINE 0.5% OPHTH SOL 15ML OS ×2 (08:00)
[2017-04-23] MEDS: TROPICAMIDE 1% OPHTH SOLN 2ML OS ×2 (08:00)
[2017-04-23] MEDS: OFLOXACIN 0.3 % (OCUFLOX) OPTH SOL 5ML OS ×2 (08:00)
[2017-04-23] MEDS: PHENYLEPHRINE 2.5% OPHTH SOL 2ML OS ×2 (08:00)
[2017-04-23] MEDS ORDERED: MIDAZOLAM INJ 2 MG/2 ML VIAL (J2250) As Ordered ×2 (08:27)
[2017-04-23] MEDS ORDERED: fentaNYL 100 MCG/2 ML INJECTION (J3010) As Ordered ×2 (08:27)
[2017-04-23] MEDS: POVIDONE-IODINE 5% OPHTH PREP SOL 30ML As Ordered ×2 (08:58)
[2017-04-23] MEDS: CEFUROXIME 1MG/0.1ML INTRACAMERAL INJ As Ordered ×2 (09:08)
[2017-04-23] MEDS: BALANCED SALT IRRIGATION SOLUTION 500ML BAG (FOR OR EYE MACHINE) As Ordered ×2 (09:08)
[2017-04-23] MEDS: LIDOCAINE 0.75%/EPINEPHRINE 0.025% IN BSS 1ML SYR INTRACAMERAL (OR ONLY) As Ordered (09:08)
[2017-04-23] MEDS: DUOVISC (0.50ML VISCOAT/0.55ML PROVISC) OPHTH KIT As Ordered ×2 (09:08)
[2017-04-23] MEDS ORDERED: ONDANSETRON 4MG/2ML VIAL (J2405) As Ordered ×2 (09:41)
[2017-04-23] MEDS ORDERED: ACETAMINOPHEN TAB 650MG DOSE (2X325MG) PO ×2 (09:45)
[2017-04-23] MEDS: ONDANSETRON 4MG/2ML VIAL (J2405) IV ×2 (09:45)
[2017-04-23] MEDS ORDERED: LR 1,000 ML IV ×2 (09:45)
== END 2017-04-23 10:17 | disposition home or self-care (01) ==
LOC: M SDC 07:09
DX: H25.12 Age-related nuclear cataract, left eye (principal); E03.9 Hypothyroidism, unspecified; E78.5 Hyperlipidemia, unspecified; K58.8 Other irritable bowel syndrome; K21.9 Gastro-esophageal reflux disease without esophagitis; Z79.899 Other long term (current) drug therapy
CPT/HCPCS: 66984

== ENCOUNTER 2017-04-26 12:03 | Emergency (ER) | payer MEDICARE, BC ==
[2017-04-26] MEDS ORDERED: EPINEPHrine 1MG/10ML SYRINGE 1.5IN (12:04)
[2017-04-26] MEDS ORDERED: ONDANSETRON 4MG/2ML VIAL (J2405) As Ordered (12:16)
[2017-04-26] MEDS ORDERED: MORPHINE 4 MG/ML 1ML VIAL (J2270) As Ordered (12:16)
[2017-04-26] MEDS: ONDANSETRON 4MG/2ML VIAL (J2405) IV ×2 (12:24→13:38)
[2017-04-26] MEDS: MORPHINE 2 MG/ML 1ML SYRINGE (J2270) IV ×6 (12:25→13:32)
[2017-04-26 12:29] LABS: HEMATOCRIT 38.7 % (36.0-47.0); HEMOGLOBIN 13.2 g/dl (12.0-16.0); MEAN CORPUSCULAR HEMOGLOBIN 29.5 pg (27.0-33.0); MEAN CORPUSCULAR HGB CONC 34.1 g/dl (32.0-36.5); MEAN CORPUSCULAR VOLUME 86.6 fl (80.0-96.0); PLATELET COUNT, AUTOMATED 314 10^3/uL (150-450); RED BLOOD COUNT 4.47 10^6/uL (4.00-5.40); RED CELL DISTRIBUTION WIDTH 13.2 % (11.5-14.5)
[2017-04-26] MEDS: NS 1,000 ML IV (12:36)
[2017-04-26] MEDS: ASPIRIN 81 MG CHEW TABLET PO (12:36)
[2017-04-26 12:50] LABS: ALBUMIN/GLOBULIN RATIO 1.29 (1.00-1.93); ALKALINE PHOSPHATASE 95 U/L (45-117); ALT/SGPT 25 U/L (12-78); ANION GAP 12 MEQ/L (8-16); AST/SGOT 25 U/L (7-37); BILIRUBIN,DIRECT < 0.1 MG/DL (0.0-0.2); BILIRUBIN,TOTAL 0.4 MG/DL (0.2-1.0); BLOOD UREA NITROGEN 16 MG/DL (7-18); CALCIUM LEVEL 9.6 MG/DL (8.8-10.2); CARBON DIOXIDE LEVEL 21 MEQ/L (21-32); CHLORIDE LEVEL 105 MEQ/L (98-107); CK-MB VALUE MASS 3.4 NG/ML (0.0-3.6); CPK CREATINE PHOSPHOKINASE 115 U/L (26-192); CREATININE FOR GFR 0.93 MG/DL (0.55-1.30); GLOMERULAR FILTRATION RATE > 60.0 (>39); GLUCOSE, FASTING 114 MG/DL (70-100); LIPASE 175 U/L (73-393); MB/CK RELATIVE INDEX 2.95 (< OR =4); POTASSIUM SERUM 3.5 MEQ/L (3.5-5.1); SODIUM LEVEL 138 MEQ/L (136-145); TOTAL PROTEIN 7.1 GM/DL (6.4-8.2); TROPONIN I < 0.02 NG/ML (< 0.10)
[2017-04-26 12:59] LABS: POSITIVE DIFF POS FLAG; WHITE BLOOD COUNT 13.3 10^3/uL (4.0-10.0)
[2017-04-26 13:00] LABS: ADD MANUAL DIFFER YES; DIFF SLIDE NUMBER 116
[2017-04-26] MEDS: TENECTEPLASE 50 MG KIT (TNKase)(J3101) IV (13:00)
[2017-04-26] MEDS: HEPARIN DRIP 25,000 UNITS in APPROPRIATE DILUENT 1 EA IV (13:04)
[2017-04-26] MEDS: HEPARIN SOD (PORCINE) 5000 UNITS/ML VIAL IV (13:05)
[2017-04-26 13:24] LABS: ATYPICAL LYMPH 3 % (0-5); BASOPHILS 2 % (0-4); EOSINOPHILS 1 % (0-5); LYMPHOCYTES 35 % (16-52); MONOCYTES 6 % (0-8); NEUTROPHILS 53 % (35-75); PLATELET ESTIMATE NORMAL (NORMAL)
[2017-04-26] MEDS ORDERED: MORPHINE 2 MG/ML 1ML SYRINGE (J2270) As Ordered (13:27)
[2017-04-26] MEDS: MAG SULF 1GM/100ML (MAG RUN) 1 GM in APPROPRIATE DILUENT 1 EA IV (13:44)
[2017-04-26] MEDS ORDERED: MORPHINE 2 MG/ML 1ML SYRINGE (J2270) IV (13:45)
[2017-04-26] MEDS ORDERED: ONDANSETRON 4MG/2ML VIAL (J2405) IV (13:45)
[2017-04-26 13:56] LABS: INR 1.12; PROTHROMBIN TIME 14.5 SECONDS (12.4-14.5)
[2017-04-26 14:08] LABS: PARTIAL THROMBOPLASTIN TIME 148.5 SECONDS (26.8-37.9)
[2017-04-26] MEDS ORDERED: METAL LOCK LOOP XX (15:15)
== END 2017-04-26 13:57 | disposition short-term general hospital (02) ==
LOC: M ED 12:03
DX: I63.9 Cerebral infarction, unspecified (principal); I21.19 ST elevation (STEMI) myocardial infarction involving other coronary artery of inferior wall; R29.703 NIHSS score 3; E03.9 Hypothyroidism, unspecified; H40.9 Unspecified glaucoma; Z79.899 Other long term (current) drug therapy
CPT/HCPCS: J2405

== ENCOUNTER → 2017-05-07 | Outpatient (REF) | payer MEDICARE, BC ==
[2017-05-07 14:22] LABS: INR 1.44; PROTHROMBIN TIME 17.9 SECONDS (12.4-14.5)
== END ==
LOC: M LAB REF 13:57
DX: I48.91 Unspecified atrial fibrillation (principal)
CPT/HCPCS: 80162

== ENCOUNTER → 2017-05-15 | Outpatient (CLI) | payer MEDICARE, BC | LOC: M LAB 09:39 | DX: R06.00 Dyspnea, unspecified (principal) | CPT/HCPCS: 71046 ==

== ENCOUNTER → 2017-06-25 | Outpatient (REF) | payer MEDICARE, BC ==
[2017-06-25 12:04] LABS: HEMATOCRIT 37.6 % (36.0-47.0); HEMOGLOBIN 11.7 g/dl (12.0-15.5); MEAN CORPUSCULAR HGB CONC 31.1 g/dl (32.0-36.5); MEAN CORPUSCULAR VOLUME 93.3 fl (80.0-96.0); PLATELET COUNT, AUTOMATED 363 10^3/uL (150-450); RED BLOOD COUNT 4.03 10^6/uL (4.00-5.40); RED CELL DISTRIBUTION WIDTH 14.8 % (11.5-14.5); WHITE BLOOD COUNT 8.4 10^3/uL (4.0-10.0)
[2017-06-25 12:32] LABS: ALBUMIN 3.7 GM/DL (3.2-5.2); ALBUMIN/GLOBULIN RATIO 1.23 (1.00-1.93); ALKALINE PHOSPHATASE 116 U/L (45-117); ALT/SGPT 20 U/L (12-78); ANION GAP 9 MEQ/L (8-16); AST/SGOT 19 U/L (7-37); BILIRUBIN,TOTAL 0.3 MG/DL (0.2-1.0); BLOOD UREA NITROGEN 17 MG/DL (7-18); CARBON DIOXIDE LEVEL 27 MEQ/L (21-32); CHLORIDE LEVEL 109 MEQ/L (98-107); CHOLESTEROL LEVEL 168 MG/DL (<200); CREATININE FOR GFR 0.99 MG/DL (0.55-1.30); FREE T4 1.48 NG/DL (0.76-1.46); GLOMERULAR FILTRATION RATE 57.8 (>39); GLUCOSE, FASTING 83 MG/DL (70-100); HDL CHOLESTEROL 42 MG/DL (>40); LDL CHOLESTEROL 100.6 MG/DL (<100); NON-HDL-C 126 MG/DL; POTASSIUM SERUM 4.2 MEQ/L (3.5-5.1); SODIUM LEVEL 145 MEQ/L (136-145); TOTAL PROTEIN 6.7 GM/DL (6.4-8.2); TRIGLYCERIDES LEVEL 127 MG/DL (<150)
== END ==
LOC: M SFHCPLAZ 09:00
DX: Z95.1 Presence of aortocoronary bypass graft (principal); Q21.1 Atrial septal defect; E78.2 Mixed hyperlipidemia; E03.9 Hypothyroidism, unspecified
CPT/HCPCS: 84443

== ENCOUNTER 2017-07-29 10:11 | Outpatient (RCR) | payer MEDICARE, BC | END 2017-08-22 | LOC: M CR 10:11 | DX: Z51.89 Encounter for other specified aftercare (principal); Z95.1 Presence of aortocoronary bypass graft | CPT/HCPCS: 93798 ==

== ENCOUNTER 2017-08-28 09:38 | Outpatient (RCR) | payer MEDICARE, BC | END 2017-09-22 | LOC: M CR 09:38 | DX: Z51.89 Encounter for other specified aftercare (principal); Z95.1 Presence of aortocoronary bypass graft | CPT/HCPCS: 93798 ==

== ENCOUNTER 2017-09-23 12:00 | Outpatient (RCR) | payer MEDICARE, BC | END 2017-10-23 | LOC: M CR 12:00 | DX: Z95.1 Presence of aortocoronary bypass graft (principal); Z51.89 Encounter for other specified aftercare | CPT/HCPCS: 93798 ==

== ENCOUNTER → 2017-10-21 | Outpatient (REF) | payer MEDICARE, BC ==
[2017-10-21 12:49] LABS: ALBUMIN 3.6 GM/DL (3.2-5.2); ALBUMIN/GLOBULIN RATIO 1.29 (1.00-1.93); ALKALINE PHOSPHATASE 92 U/L (45-117); ALT/SGPT 23 U/L (12-78); ANION GAP 8 MEQ/L (8-16); AST/SGOT 23 U/L (7-37); BILIRUBIN,TOTAL 0.4 MG/DL (0.2-1.0); BLOOD UREA NITROGEN 14 MG/DL (7-18); CALCIUM LEVEL 8.9 MG/DL (8.8-10.2); CARBON DIOXIDE LEVEL 27 MEQ/L (21-32); CHLORIDE LEVEL 107 MEQ/L (98-107); CHOLESTEROL LEVEL 220 MG/DL (<200); CHOLESTEROL RISK RATIO 3.928 (<5); CREATININE FOR GFR 0.85 MG/DL (0.55-1.30); FREE T4 1.11 NG/DL (0.76-1.46); GLOMERULAR FILTRATION RATE > 60.0 (>39); GLUCOSE, FASTING 76 MG/DL (70-100); HDL CHOLESTEROL 56 MG/DL (>40); LDL CHOLESTEROL 143.2 MG/DL (<100); NON-HDL-C 164 MG/DL; POTASSIUM SERUM 4.4 MEQ/L (3.5-5.1); SODIUM LEVEL 142 MEQ/L (136-145); TOTAL PROTEIN 6.4 GM/DL (6.4-8.2); TRIGLYCERIDES LEVEL 104 MG/DL (<150)
== END ==
LOC: M SFHCPLAZ 08:35
DX: E78.2 Mixed hyperlipidemia (principal); E03.9 Hypothyroidism, unspecified
CPT/HCPCS: 84443

== ENCOUNTER → 2017-11-09 | Outpatient (CLI) | payer MEDICARE, BC ==
[2017-11-09 18:39] LABS: TROPONIN I < 0.02 NG/ML (< 0.10)
== END ==
LOC: M SMT 13:35
DX: R07.9 Chest pain, unspecified (principal)
CPT/HCPCS: 84484

== ENCOUNTER → 2017-12-09 | Outpatient (REF) | payer MEDICARE, BC | LOC: M LAB REF 19:32 | DX: C44.319 Basal cell carcinoma of skin of other parts of face (principal) | CPT/HCPCS: 88305 ==

== ENCOUNTER → 2018-02-02 | Outpatient (REF) | payer MEDICARE, BC ==
[~2018-02-02] MED LIST: ALIG4CAP PO; ASPI1TAB PO; BROM0.07 OU; CALTTAB5 PO; METO1TAB87 PO; PREDOPD OU; SYNT75TA PO; VITA100067 PO; WARF-20 PO; WARF4TAB51 PO
== END ==
LOC: M SFHCPLAZ 09:35
PROVIDERS: ATTEND Dermatology
DX: C44.41 Basal cell carcinoma of skin of scalp and neck (principal)
CPT/HCPCS: 11622; 13121; 88305; G0463

== ENCOUNTER → 2018-03-08 | Outpatient (REF) | payer MEDICARE, BC ==
[2018-03-08 13:56] LABS: HEMATOCRIT 39.3 % (36.0-47.0); HEMOGLOBIN 12.7 g/dl (12.0-15.5); MEAN CORPUSCULAR HGB CONC 32.3 g/dl (32.0-36.5); MEAN CORPUSCULAR VOLUME 89.7 fl (80.0-96.0); PLATELET COUNT, AUTOMATED 283 10^3/uL (150-450); RED BLOOD COUNT 4.38 10^6/uL (4.00-5.40)
[2018-03-08 14:09] LABS: ALBUMIN 3.7 GM/DL (3.2-5.2); ALT/SGPT 18 U/L (12-78); BILIRUBIN,TOTAL 0.3 MG/DL (0.2-1.0); BLOOD UREA NITROGEN 14 MG/DL (7-18); CALCIUM LEVEL 8.9 MG/DL (8.8-10.2); CARBON DIOXIDE LEVEL 26 MEQ/L (21-32); CHLORIDE LEVEL 106 MEQ/L (98-107); CHOLESTEROL LEVEL 201 MG/DL (<200); CHOLESTEROL RISK RATIO 3.589 (<5); CREATININE FOR GFR 0.79 MG/DL (0.55-1.30); FREE T4 1.18 NG/DL (0.76-1.46); GLOMERULAR FILTRATION RATE > 60.0 (>39); GLUCOSE, FASTING 91 MG/DL (70-100); HDL CHOLESTEROL 56 MG/DL (>40); LDL CHOLESTEROL 130 MG/DL (<100); NON-HDL-C 145 MG/DL; POTASSIUM SERUM 4.8 MEQ/L (3.5-5.1); SODIUM LEVEL 142 MEQ/L (136-145); TOTAL PROTEIN 6.7 GM/DL (6.4-8.2); TRIGLYCERIDES LEVEL 75 MG/DL (<150)
== END ==
LOC: M SFHCADAM 08:39
PROVIDERS: ATTEND Family Medicine
DX: I25.10 Atherosclerotic heart disease of native coronary artery without angina pectoris (principal); Q21.1 Atrial septal defect; E78.2 Mixed hyperlipidemia; E03.9 Hypothyroidism, unspecified; I48.91 Unspecified atrial fibrillation

== ENCOUNTER → 2018-06-03 | Outpatient (REF) | payer MEDICARE, BC ==
[~2018-06-03] MED LIST changes: -ASPI1TAB PO; +ASPI81TA26 PO
== END ==
LOC: M SFHCPLAZ 17:39
PROVIDERS: ATTEND Dermatology
DX: L85.9 Epidermal thickening, unspecified (principal)

== ENCOUNTER → 2018-08-30 | Outpatient (REF) | payer MEDICARE, BC ==
[2018-08-30 12:29] LABS: HEMATOCRIT 43.3 % (36.0-47.0); HEMOGLOBIN 13.9 g/dl (12.0-15.5); MEAN CORPUSCULAR HEMOGLOBIN 30.1 pg (27.0-33.0); MEAN CORPUSCULAR HGB CONC 32.1 g/dl (32.0-36.5); MEAN CORPUSCULAR VOLUME 93.7 fl (80.0-96.0); PLATELET COUNT, AUTOMATED 249 10^3/uL (150-450); RED BLOOD COUNT 4.62 10^6/uL (4.00-5.40); WHITE BLOOD COUNT 6.4 10^3/uL (4.0-10.0)
[2018-08-30 13:01] LABS: ALT/SGPT 27 U/L (12-78); BILIRUBIN,TOTAL 0.5 MG/DL (0.2-1.0); BLOOD UREA NITROGEN 13 MG/DL (7-18); CALCIUM LEVEL 9.5 MG/DL (8.8-10.2); CARBON DIOXIDE LEVEL 31 MEQ/L (21-32); CHLORIDE LEVEL 103 MEQ/L (98-107); CHOLESTEROL LEVEL 206 MG/DL (<200); CHOLESTEROL RISK RATIO 3.377 (<5); CREATININE FOR GFR 0.86 MG/DL (0.55-1.30); FREE T4 1.05 NG/DL (0.76-1.46); GLOMERULAR FILTRATION RATE > 60.0 (>39); GLUCOSE, FASTING 87 MG/DL (70-100); HDL CHOLESTEROL 61 MG/DL (>40); LDL CHOLESTEROL 120 MG/DL (<100); NON-HDL-C 145 MG/DL; POTASSIUM SERUM 4.2 MEQ/L (3.5-5.1); SODIUM LEVEL 139 MEQ/L (136-145); TOTAL PROTEIN 6.6 GM/DL (6.4-8.2); TRIGLYCERIDES LEVEL 123 MG/DL (<150)
== END ==
LOC: M SFHCPLAZ 08:36
PROVIDERS: ATTEND Family Medicine
DX: I48.91 Unspecified atrial fibrillation (principal); Q21.1 Atrial septal defect; E78.2 Mixed hyperlipidemia; E03.9 Hypothyroidism, unspecified

== ENCOUNTER → 2018-12-31 | Outpatient (REF) | payer MEDICARE, BC ==
[2018-12-31 10:08] LABS: CHOLESTEROL RISK RATIO 1.885 (<5)
== END ==
LOC: M SFHCPLAZ 08:11
PROVIDERS: ATTEND Family Medicine
DX: E78.2 Mixed hyperlipidemia (principal)

== ENCOUNTER 2019-02-03 07:08 | Day surgery (SDC) | payer MEDICARE, BC ==
[~2019-02-03] VITALS: Ht 165.1 cm; Wt 63.5 kg
[~2019-02-03 07:08] MED LIST changes: +BALANCED SALT IRRIGATION SOLUTION 500ML BAG (FOR OR EYE MACHINE) As Ordered ONE; +CEFUROXIME 1MG/0.1ML INTRACAMERAL INJ As Ordered ONE; +COQ-100C5 PO; +D 101000 PO; +DUOVISC (0.50ML VISCOAT/0.55ML PROVISC) OPHTH KIT As Ordered ONE; +LEVO75TA4 PO; +LIDOCAINE 1% MDV 20ML VIAL SQ PRN; +OFLOXACIN 0.3 % (OCUFLOX) OPTH SOL 5ML OD ONE; +PHENYLEPHRINE 2.5% OPHTH SOL 2ML OD ONE; +POVIDONE-IODINE 5% OPHTH PREP SOL 30ML As Ordered ONE; +PROL60SO SC; +PROPARACAINE 0.5% OPHTH SOL 15ML OD ONE; +TROPICAMIDE 1% OPHTH SOLN 2ML OD ONE
[2019-02-03] MEDS ORDERED: LIDOCAINE 0.75%/EPINEPHRINE 0.025% IN BSS 0.8ML SYR INTRACAMERAL--OR ONLY As Ordered ONE (07:13)
[2019-02-03] MEDS ORDERED: MIDAZOLAM INJ 2 MG/2 ML VIAL (J2250) As Ordered ONE (09:02)
[2019-02-03] MEDS ORDERED: fentaNYL 100 MCG/2 ML INJECTION (J3010) As Ordered ONE (09:02)
[2019-02-03 10:15] VITALS: BP 134/63
--- NOTE | 2019-02-04 22:51 | RO ---
DATE OF PROCEDURE: 02/03/2019 PREOPERATIVE DIAGNOSIS: 1. Visually significant nuclear sclerotic cataract right eye. POSTOPERATIVE DIAGNOSIS: 1. Visually significant nuclear sclerotic cataract right eye. PROCEDURE: 1. Cataract extraction with use of phacoemulsification and placement of intraocular lens, AU00T0, 20.5 D, right eye. SURGEON: Jr Feliciano DO INTERLOCKING INSTALLER: None. ANESTHESIA: Local with monitored anesthesia care (MAC). COMPLICATIONS: None. POSTOPERATIVE CONDITION: Stable. INDICATIONS FOR SURGERY: 1. Blurred vision affecting patients activities of daily living. DESCRIPTION OF PROCEDURE: The patient was seen in the preoperative area and properly identified. The correct operative eye was identified and marked. The patient received topical anesthetic, antibiotics, and topical dilating drops. The patient was then transferred to the operating room. The correct side was re-identified, and a time-out was performed. The eye was prepped and draped in a sterile fashion. The eyelids were isolated with Tegaderm tape, and the lids were held open with an adjustable speculum. A 1.0 mm paracentesis incision was made. Intraocular preservative-free Shugarcaine was then injected into the anterior chamber. Viscoelastic was then injected into the anterior chamber through the paracentesis. Using a 2.4 mm sharp-tipped keratome, the anterior chamber was entered via a temporal clear cornea incision. A continuous curvilinear capsulorrhexis was created with Utrata forceps. Hydrodissection was performed with balanced salt solution (BSS) on a blunt cannula until the nucleus was able to rotate freely. The crystalline lens was phacoemulsified and aspirated. Irrigation/aspiration was used to remove the cortical material. Cohesive viscoelastic was placed into the capsular bag to deepen it. The implant was placed into the capsular bag and allowed to unfold. Placement was confirmed by visualizing the anterior capsulorrhexis. Irrigation/aspiration was used to remove the viscoelastic. The clear corneal incision was hydrated with BSS on a blunt cannula. The lens was well positioned. The incisions were then tested for leaks and found to be negative. The eye was then palpated for appropriate pressure and adjusted accordingly with BSS. The eyelid speculum was then carefully removed. A shield was placed over the eye. The patient tolerated the procedure well and was discharged to the recovery unit in a stable condition.
== END 2019-02-03 10:20 | disposition home or self-care (01) ==
LOC: M SDC 07:08
PROVIDERS: ATTEND Ophthalmology
DX: H25.11 Age-related nuclear cataract, right eye (principal); I25.10 Atherosclerotic heart disease of native coronary artery without angina pectoris; I10 Essential (primary) hypertension; I25.2 Old myocardial infarction; E78.5 Hyperlipidemia, unspecified; E03.9 Hypothyroidism, unspecified; K21.9 Gastro-esophageal reflux disease without esophagitis; Z79.82 Long term (current) use of aspirin; Z79.899 Other long term (current) drug therapy
CPT/HCPCS: 66984; J2250; J3010; V2632

== ENCOUNTER → 2019-04-15 | Outpatient (CLI) | payer MEDICARE, BC ==
[~2019-04-15] MED LIST changes: -BALANCED SALT IRRIGATION SOLUTION 500ML BAG (FOR OR EYE MACHINE) As Ordered ONE; -CEFUROXIME 1MG/0.1ML INTRACAMERAL INJ As Ordered ONE; -DUOVISC (0.50ML VISCOAT/0.55ML PROVISC) OPHTH KIT As Ordered ONE; -LIDOCAINE 1% MDV 20ML VIAL SQ PRN; -OFLOXACIN 0.3 % (OCUFLOX) OPTH SOL 5ML OD ONE; -PHENYLEPHRINE 2.5% OPHTH SOL 2ML OD ONE; -POVIDONE-IODINE 5% OPHTH PREP SOL 30ML As Ordered ONE; -PROPARACAINE 0.5% OPHTH SOL 15ML OD ONE; -TROPICAMIDE 1% OPHTH SOLN 2ML OD ONE
--- NOTE | 2019-04-15 09:20 | REP ---
Clinical: Cough . Comparison: 05/15/2017, 11/09/2017 . Technique: PA and lateral. Findings: Prior sternotomy. Cardiac silhouette is normal. Lung zepeda demonstrate chronic-appearing changes without focal consolidation, effusion, or pneumothorax. Skeletal structures are intact. Impression: Chronic appearing changes. No focal consolidation or effusion. Electronically Signed by Jordi Gómez MD 04/15/2019 09:11 A
== END ==
LOC: M ADAMS 08:59
PROVIDERS: ATTEND Family Medicine
DX: R05 Cough (principal)
CPT/HCPCS: 71046; G0463

== ENCOUNTER → 2019-07-19 | Outpatient (REF) | payer MEDICARE, BC | LOC: M SFHCADAM 10:11 | PROVIDERS: ATTEND Family Medicine | DX: I25.10 Atherosclerotic heart disease of native coronary artery without angina pectoris (principal); E03.9 Hypothyroidism, unspecified; E78.2 Mixed hyperlipidemia ==

== ENCOUNTER → 2019-07-20 | Outpatient (CLI) | payer MEDICARE, BC ==
[2019-07-20 10:39] LABS: HEMATOCRIT 38.3 % (36.0-47.0); HEMOGLOBIN 12.7 g/dl (12.0-15.5); MEAN CORPUSCULAR HEMOGLOBIN 30.5 pg (27.0-33.0); MEAN CORPUSCULAR HGB CONC 33.2 g/dl (32.0-36.5); MEAN CORPUSCULAR VOLUME 92.1 fl (80.0-96.0); PLATELET COUNT, AUTOMATED 236 10^3/uL (150-450); RED BLOOD COUNT 4.16 10^6/uL (4.00-5.40); WHITE BLOOD COUNT 7.5 10^3/uL (4.0-10.0)
[2019-07-20 10:52] LABS: ALBUMIN 3.7 GM/DL (3.2-5.2); ALT/SGPT 24 U/L (12-78); BILIRUBIN,TOTAL 0.5 MG/DL (0.2-1.0); BLOOD UREA NITROGEN 16 MG/DL (7-18); CALCIUM LEVEL 8.9 MG/DL (8.8-10.2); CARBON DIOXIDE LEVEL 27 MEQ/L (21-32); CHLORIDE LEVEL 106 MEQ/L (98-107); CHOLESTEROL LEVEL 124 MG/DL (<200); CHOLESTEROL RISK RATIO 2.101 (<5); CREATININE FOR GFR 0.91 MG/DL (0.55-1.30); FREE T4 1.14 NG/DL (0.76-1.46); GLOMERULAR FILTRATION RATE > 60.0 (>32); GLUCOSE, FASTING 93 MG/DL (70-100); HDL CHOLESTEROL 59 MG/DL (>40); LDL CHOLESTEROL 47 MG/DL (<100); NON-HDL-C 65 MG/DL; POTASSIUM SERUM 4.5 MEQ/L (3.5-5.1); SODIUM LEVEL 140 MEQ/L (136-145); TOTAL PROTEIN 6.1 GM/DL (6.4-8.2); TRIGLYCERIDES LEVEL 89 MG/DL (<150)
== END ==
LOC: M PLALAB 08:00
PROVIDERS: ATTEND Family Medicine
DX: I25.10 Atherosclerotic heart disease of native coronary artery without angina pectoris (principal); E03.9 Hypothyroidism, unspecified; E78.2 Mixed hyperlipidemia

== ENCOUNTER → 2019-09-14 | Outpatient (CLI) | payer MEDICARE, BC ==
[~2019-09-14] MED LIST changes: +METO200T28 PO
== END ==
LOC: M LABSMTC 13:05
PROVIDERS: ATTEND Family Medicine
DX: Z11.59 Encounter for screening for other viral diseases (principal); Z20.828 Contact with and (suspected) exposure to other viral communicable diseases

== ENCOUNTER → 2019-10-17 | Outpatient (REF) | payer MEDICARE, BC | LOC: M LAB REF 10:00 | PROVIDERS: ATTEND Dermatology | DX: Z12.4 Encounter for screening for malignant neoplasm of cervix (principal) | CPT/HCPCS: 11102; 11103; 17000; 17003; 88305; G0463 ==

== ENCOUNTER → 2019-11-01 | Outpatient (REF) | payer MEDICARE, BC | LOC: M LAB REF 10:30 | PROVIDERS: ATTEND Dermatology | DX: D23.71 Other benign neoplasm of skin of right lower limb, including hip (principal) ==

== ENCOUNTER 2019-11-11 02:39 | Emergency (ER) | payer MEDICARE, BC ==
[~2019-11-11] VITALS: Ht 165.1 cm; Wt 65.6 kg
[~2019-11-11 02:39] MED LIST changes: -METO200T28 PO
[2019-11-11] MEDS ORDERED: METO200T28 PO (02:51)
[2019-11-11] MEDS ORDERED: FAMOTIDINE INJ 20MG/2ML VIAL (S0028 PER 1) IVP ONE (03:45)
[2019-11-11] MEDS ORDERED: methylPREDNISolone 125MG 2ML VIAL IV ONE (03:45)
[2019-11-11 04:08] LABS: BASO % 0.2 % (0.0-1.0); EOS # 0.1 10^3/uL (0.0-0.5); HEMATOCRIT 38.7 % (36.0-47.0); HEMOGLOBIN 12.7 g/dl (12.0-15.5); LYMPH # 1.9 10^3/uL (1.5-5.0); LYMPH % 19.5 % (24.0-44.0); MEAN CORPUSCULAR HEMOGLOBIN 30.2 pg (27.0-33.0); MEAN CORPUSCULAR HGB CONC 32.8 g/dl (32.0-36.5); MEAN CORPUSCULAR VOLUME 91.9 fl (80.0-96.0); MONO # 0.5 10^3/uL (0.0-0.8); MONO % 5.3 % (0.0-5.0); NEUTROPHILS # 7.3 10^3/uL (1.5-8.5); NEUTROPHILS % 73.7 % (36.0-66.0); PLATELET COUNT, AUTOMATED 264 10^3/uL (150-450); RED BLOOD COUNT 4.21 10^6/uL (4.00-5.40); WHITE BLOOD COUNT 9.9 10^3/uL (4.0-10.0)
[2019-11-11 05:15] VITALS: BP 130/66
== END 2019-11-11 05:21 | disposition home or self-care (01) ==
LOC: M ED 02:39
DX: L27.0 Generalized skin eruption due to drugs and medicaments taken internally (principal); T37.0X5A Adverse effect of sulfonamides, initial encounter; I48.91 Unspecified atrial fibrillation; E78.5 Hyperlipidemia, unspecified; Z79.82 Long term (current) use of aspirin; Z79.899 Other long term (current) drug therapy; Z88.8 Allergy status to other drugs, medicaments and biological substances
CPT/HCPCS: 85025; 96374; 99284; J2930

== ENCOUNTER → 2019-12-01 | Outpatient (CLI) | payer MEDICARE, BC ==
[~2019-12-01] MED LIST changes: +METO200T28 PO
--- NOTE | 2019-12-01 12:17 | REPMRS ---
Patient History The patient states she has not had a clinical breast exam in over a year. No known family history of cancer. 3D TOMOSYNTHESIS WAS PERFORMED. [facility] for [facility].9%. VOLTAYLORA GALDINO B. Digital Woman Screen Mammo: December 01, 2019 - Exam #: [id number] Bilateral CC and MLO view(s) were taken. Technologist: Francie Neves, Technologist Prior study comparison: May 05, 2016, digital woman screen mammo performed at [facility]. April 24, 2015, digital woman screen mammo performed at [facility]. FINDINGS: The breast tissue is heterogeneously dense. This may lower the sensitivity of mammography. There has been no change in the appearance of the mammogram from the prior studies. There is a moderate amount of residual fibroglandular tissue which is fairly symmetric. There is no interval development of dominant mass, areas of architectural distortion, or clustered microcalcification typical of malignancy. Assessment: BI-RADS/ACR category 1 mammogram. Negative Mammogram. Recommendation Routine screening mammogram in 1 year (for women over age 40). This mammogram was interpreted with the aid of an FDA-approved computer-aided dectection system. Electronically Signed By: Vineet Massey MD 12/01/19 [id number]
== END ==
LOC: M WHC 11:23
PROVIDERS: ATTEND Physician Assistant Medical
DX: Z12.31 Encounter for screening mammogram for malignant neoplasm of breast (principal)

== ENCOUNTER → 2019-12-03 | Outpatient (CLI) | payer MEDICARE, BC ==
[2019-12-03 08:14] LABS: HEMATOCRIT 38.1 % (36.0-47.0); HEMOGLOBIN 12.2 g/dl (12.0-15.5); MEAN CORPUSCULAR HEMOGLOBIN 29.7 pg (27.0-33.0); MEAN CORPUSCULAR VOLUME 92.7 fl (80.0-96.0); PLATELET COUNT, AUTOMATED 261 10^3/uL (150-450); RED BLOOD COUNT 4.11 10^6/uL (4.00-5.40); WHITE BLOOD COUNT 6.2 10^3/uL (4.0-10.0)
[2019-12-03 08:41] LABS: ALBUMIN 3.5 GM/DL (3.2-5.2); ALT/SGPT 21 U/L (12-78); BILIRUBIN,TOTAL 0.5 MG/DL (0.2-1.0); BLOOD UREA NITROGEN 17 MG/DL (7-18); CALCIUM LEVEL 8.8 MG/DL (8.8-10.2); CARBON DIOXIDE LEVEL 28 MEQ/L (21-32); CHLORIDE LEVEL 107 MEQ/L (98-107); CHOLESTEROL LEVEL 130 MG/DL (<200); CHOLESTEROL RISK RATIO 2.131 (<5); FREE T4 1.06 NG/DL (0.76-1.46); GLOMERULAR FILTRATION RATE > 60.0 (>32); GLUCOSE, FASTING 93 MG/DL (70-100); HDL CHOLESTEROL 61 MG/DL (>40); LDL CHOLESTEROL 50 MG/DL (<100); NON-HDL-C 69 MG/DL; POTASSIUM SERUM 4.6 MEQ/L (3.5-5.1); SODIUM LEVEL 140 MEQ/L (136-145); TOTAL PROTEIN 6.5 GM/DL (6.4-8.2); TRIGLYCERIDES LEVEL 93 MG/DL (<150)
[2019-12-03 10:17] LABS: HEMOGLOBIN A1c 5.1 %
== END ==
LOC: M LAB 07:14
PROVIDERS: ATTEND Family Medicine
DX: R35.8 Other polyuria (principal); I25.10 Atherosclerotic heart disease of native coronary artery without angina pectoris; E78.2 Mixed hyperlipidemia; E03.9 Hypothyroidism, unspecified; I48.91 Unspecified atrial fibrillation; Z79.899 Other long term (current) drug therapy

== ENCOUNTER → 2019-12-10 | Outpatient (CLI) | payer MEDICARE, BC ==
--- NOTE | 2019-12-10 17:36 | REP ---
INDICATION: INJURY COMPARISON: None. TECHNIQUE: AP, lateral, bilateral oblique views left 2nd digit. FINDINGS: Age-related osteopenia and advanced osteoarthritic degenerative changes are appreciated primarily involving the interphalangeal joints. Findings include subchondral sclerosis, joint space obliteration, marginal spurring and subtle periarticular calcifications. No obvious acute fracture or dislocation noted. No subcutaneous emphysema. No foreign body. IMPRESSION: Age-related osteopenia and advanced osteoarthritic degenerative changes. No acute fracture or dislocation is appreciated. <Electronically signed by Jordi Gómez > 12/10/19 0919
== END ==
LOC: M RAD 17:10
PROVIDERS: ATTEND Physician Assistant Medical
DX: T07.XXXA Unspecified multiple injuries, initial encounter (principal)

== ENCOUNTER → 2019-12-13 | Outpatient (REF) | payer MEDICARE, BC | LOC: M LAB REF 14:57 | PROVIDERS: ATTEND Dermatology | DX: D04.61 Carcinoma in situ of skin of right upper limb, including shoulder (principal) ==

== ENCOUNTER → 2020-04-26 | Outpatient (REF) | payer MEDICARE, BC | LOC: M LAB REF 18:33 | PROVIDERS: ATTEND Dermatology | DX: D04.30 Carcinoma in situ of skin of unspecified part of face (principal) ==

== ENCOUNTER → 2020-06-28 | Outpatient (REF) | payer MEDICARE, BC ==
[2020-06-28 12:53] LABS: HEMATOCRIT 37.7 % (36.0-47.0); HEMOGLOBIN 11.8 g/dl (12.0-15.5); MEAN CORPUSCULAR HEMOGLOBIN 29.7 pg (27.0-33.0); MEAN CORPUSCULAR HGB CONC 31.3 g/dl (32.0-36.5); PLATELET COUNT, AUTOMATED 214 10^3/uL (150-450); RED BLOOD COUNT 3.97 10^6/uL (4.00-5.40)
[2020-06-28 13:48] LABS: ALBUMIN 3.7 GM/DL (3.2-5.2); ALT/SGPT 53 U/L (12-78); BILIRUBIN,TOTAL 0.7 MG/DL (0.2-1.0); BLOOD UREA NITROGEN 14 MG/DL (7-18); CARBON DIOXIDE LEVEL 27 MEQ/L (21-32); CHLORIDE LEVEL 110 MEQ/L (98-107); CHOLESTEROL LEVEL 94 MG/DL (<200); FREE T4 1.31 NG/DL (0.76-1.46); GLOMERULAR FILTRATION RATE > 60.0 (>32); GLUCOSE, FASTING 87 MG/DL (70-100); HDL CHOLESTEROL 61 MG/DL (>40); LDL CHOLESTEROL 15 MG/DL (<100); NON-HDL-C 33 MG/DL; POTASSIUM SERUM 4.5 MEQ/L (3.5-5.1); SODIUM LEVEL 142 MEQ/L (136-145); TOTAL PROTEIN 6.4 GM/DL (6.4-8.2); TRIGLYCERIDES LEVEL 91 MG/DL (<150)
== END ==
LOC: M SFHCADAM 09:08
PROVIDERS: ATTEND Family Medicine
DX: I25.10 Atherosclerotic heart disease of native coronary artery without angina pectoris (principal); E78.2 Mixed hyperlipidemia; E03.9 Hypothyroidism, unspecified

== ENCOUNTER → 2020-07-26 | Outpatient (REF) | payer MEDICARE, BC | LOC: M LAB REF 14:04 | PROVIDERS: ATTEND Dermatology | DX: L57.0 Actinic keratosis (principal) ==

== ENCOUNTER → 2020-08-21 | Outpatient (CLI) | payer MEDICARE, BC ==
--- NOTE | 2020-08-21 12:52 | REP ---
INDICATION: RIGHT SHOULDER TENDINITIS COMPARISON: None. TECHNIQUE: Internal rotation, external rotation, and Y view. FINDINGS: The acromioclavicular joint is essentially age-appropriate. There is subtle blunting and sclerotic change to the glenoid rim. The humeral head is age-appropriate. The subacromial space is normal. No periarticular calcifications or loose bodies. No evidence for acute fracture or dislocation. IMPRESSION: Essentially age-related degenerative changes. <Electronically signed by Jordi Gómez > 08/21/20 [id number]
== END ==
LOC: M ADAMS 12:20
PROVIDERS: ATTEND Family Medicine
DX: M77.8 Other enthesopathies, not elsewhere classified (principal)
CPT/HCPCS: 73030; G0463

== ENCOUNTER → 2020-12-26 | Outpatient (CLI) | payer MEDICARE, BC ==
--- NOTE | 2020-12-26 14:14 | REPMRS ---
Patient History The patient states she has not had a clinical breast exam in over a year. No known family history of cancer. Tomosynthesis is performed. Volpara breast density is b. Tyrer-Cuzick lifetime risk of breast cancer 0.7%. Patient states no breast complaints today. Patient has signed MRS History Sheet. Digital Woman Screen Mammo: December 26, 2020 - Exam #: [id number] Bilateral CC and MLO view(s) were taken. Technologist: Colleen Oscar, Jig Builder Prior study comparison: December 01, 2019, bilateral digital woman screen mammo performed at [facility]. May 05, 2016, digital woman screen mammo performed at [facility]. FINDINGS: The breast tissue is heterogeneously dense. This may lower the sensitivity of mammography. There has been no change in the appearance of the mammogram from the prior studies. There is a moderate amount of residual fibroglandular tissue which is fairly symmetric. There is no interval development of dominant mass, areas of architectural distortion, or clustered microcalcification typical of malignancy. Assessment: BI-RADS/ACR category 1 mammogram. Negative Mammogram. Recommendation Routine screening mammogram in 1 year (for women over age 40). This mammogram was interpreted with the aid of an FDA-approved computer-aided dectection system. Electronically Signed By: Vineet Massey MD 12/26/20 3505
== END ==
LOC: M WHC 11:59
PROVIDERS: ATTEND Physician Assistant Medical
DX: Z12.31 Encounter for screening mammogram for malignant neoplasm of breast (principal)

== ENCOUNTER → 2021-01-07 | Outpatient (REF) | payer MEDICARE, BC ==
[2021-01-07 13:30] LABS: HEMATOCRIT 35.8 % (36.0-47.0); HEMOGLOBIN 10.8 g/dl (12.0-15.5); MEAN CORPUSCULAR HEMOGLOBIN 28.1 pg (27.0-33.0); MEAN CORPUSCULAR HGB CONC 30.2 g/dl (32.0-36.5); MEAN CORPUSCULAR VOLUME 93.2 fl (80.0-96.0); PLATELET COUNT, AUTOMATED 224 10^3/uL (150-450); RED BLOOD COUNT 3.84 10^6/uL (4.00-5.40); WHITE BLOOD COUNT 7.5 10^3/uL (4.0-10.0)
[2021-01-07 14:17] LABS: ALBUMIN 3.3 GM/DL (3.2-5.2); ALT/SGPT 38 U/L (12-78); BILIRUBIN,TOTAL 0.7 MG/DL (0.2-1.0); BLOOD UREA NITROGEN 16 MG/DL (7-18); CALCIUM LEVEL 9.1 MG/DL (8.8-10.2); CARBON DIOXIDE LEVEL 23 MEQ/L (21-32); CHLORIDE LEVEL 112 MEQ/L (98-107); CHOLESTEROL LEVEL 85 MG/DL (<200); CHOLESTEROL RISK RATIO 1.976 (<5); CREATININE FOR GFR 0.89 MG/DL (0.55-1.30); GLOMERULAR FILTRATION RATE > 60.0 (>32); GLUCOSE, FASTING 88 MG/DL (70-100); HDL CHOLESTEROL 43 MG/DL (>40); LDL CHOLESTEROL 25 MG/DL (<100); NON-HDL-C 42 MG/DL; POTASSIUM SERUM 4.7 MEQ/L (3.5-5.1); SODIUM LEVEL 143 MEQ/L (136-145); TOTAL PROTEIN 6.2 GM/DL (6.4-8.2); TRIGLYCERIDES LEVEL 87 MG/DL (<150)
== END ==
LOC: M SFHCADAM 08:17
PROVIDERS: ATTEND Family Medicine
DX: I48.91 Unspecified atrial fibrillation (principal); I25.10 Atherosclerotic heart disease of native coronary artery without angina pectoris; E78.2 Mixed hyperlipidemia; E03.9 Hypothyroidism, unspecified

== ENCOUNTER → 2021-01-10 | Outpatient (REF) | payer MEDICARE, BC ==
[2021-01-10 16:44] LABS: FERRITIN 21 NG/ML (8-252); IRON (FE) 43 UG/DL (50-170); PERCENT SATURATION 10.1 % (13.2-45.0); TOTAL IRON BINDING CAPACITY 424 UG/DL (250-450); TOTAL PROTEIN 6.4 GM/DL (6.4-8.2)
[2021-01-10 16:50] LABS: VITAMIN B12 LEVEL 567 PG/ML (247-911)
[2021-01-11 11:14] LABS: FOLATE 20.2 NG/ML (>5.4)
[2021-01-14 09:36] LABS: ALBUMIN 3.84 GM/DL (3.29-5.55); ALPHA-1-GLOBULIN % 6.1 % (2.9-4.9); ALPHA-1-GLOBULINS 0.39 GM/DL (0.17-0.41); ALPHA-2-GLOBULINS % 10.9 % (7.1-11.8); BETA-1-GLOBULINS % 7.8 % (4.7-7.2); BETA-2-GLOBULINS % 4.7 % (3.2-6.5); GAMMA GLOBULIN % 10.5 % (11.1-18.8); GAMMA GLOBULINS 0.67 GM/DL (0.65-1.58)
== END ==
LOC: M SFHCADAM 14:42
PROVIDERS: ATTEND Family Medicine
DX: D64.9 Anemia, unspecified (principal)
CPT/HCPCS: 82607; 82728; 82746; 83550; 84165; 85046; G0463

== ENCOUNTER → 2021-04-04 | Outpatient (CLI) | payer MEDICARE, BC | LOC: M PLAIMG 13:07 | PROVIDERS: ATTEND Nurse Practitioner Family | DX: R05.9 Cough, unspecified (principal) ==

== ENCOUNTER → 2021-05-07 | Outpatient (REF) | payer MEDICARE, BC ==
[2021-05-07 12:45] LABS: APPEARANCE, URINE MANUAL CLEAR (CLEAR); COLOR, URINE MANUAL YELLOW (YELLOW)
[2021-05-07 12:46] LABS: BILIRUBIN, URINE MANUAL NEGATIVE (NEGATIVE); BLOOD URINE MANUAL POSITIVE (NEGATIVE); GLUCOSE, URINE (UA) MANUAL NEGATIVE (NEGATIVE); KETONE, URINE MANUAL NEGATIVE (NEGATIVE); LEUKOCYTE ESTERASE, URINE MAN TRACE (NEGATIVE); NITRITE, URINE MANUAL NEGATIVE (NEGATIVE); PROTEIN, URINE MANUAL TRACE mg/dL (NEGATIVE); SPECIFIC GRAVITY,URINE MANUAL 1.015 (1.002-1.035); UROBILINOGEN, URINE MANUAL NORMAL (NORMAL)
[2021-05-07 12:53] LABS: HEMATOCRIT 31.9 % (36.0-47.0); HEMOGLOBIN 9.8 g/dl (12.0-15.5); MEAN CORPUSCULAR HEMOGLOBIN 28.8 pg (27.0-33.0); MEAN CORPUSCULAR HGB CONC 30.7 g/dl (32.0-36.5); MEAN CORPUSCULAR VOLUME 93.8 fl (80.0-96.0); PLATELET COUNT, AUTOMATED 246 10^3/uL (150-450); WHITE BLOOD COUNT 6.3 10^3/uL (4.0-10.0)
[2021-05-07 12:58] LABS: BACTERIA, URINE SMALL AMOUNT; HYALINE CAST, URINE NONE SEEN /lpf (0-1); MUCUS, URINE SMALL AMOUNT (NEGATIVE); RBC, URINE 0-1 /hpf (0-3); SQUAMOUS EPITHELIAL CELL URINE SMALL AMOUNT /hpf (SMALL AMT); WBC, URINE 0-1 /hpf (0-3)
[2021-05-07 13:35] LABS: CALCIUM LEVEL 9.5 MG/DL (8.8-10.2); CREATININE FOR GFR 0.95 MG/DL (0.55-1.30); PERCENT SATURATION 29.6 % (13.2-45.0); POTASSIUM SERUM 4.5 MEQ/L (3.5-5.1)
== END ==
LOC: M SFHCADAM 08:18
PROVIDERS: ATTEND Family Medicine
DX: D50.0 Iron deficiency anemia secondary to blood loss (chronic) (principal); I25.10 Atherosclerotic heart disease of native coronary artery without angina pectoris

== ENCOUNTER → 2021-05-10 | Outpatient (REF) | payer MEDICARE, BC ==
[~2021-05-10] MED LIST changes: +ALIR75PE3 SC; +AREDS OU; +CALTCHW5 PO; +ESSETAB4 PO; +FERR325T3 PO; +LASI40TA9 PO; +OSTE1TAB2 PO; +VITA100093 PO; +XARE15TA PO; +[UNRECOGNIZED DRUG - OTHER] OU
[2021-05-10 18:04] LABS: ALBUMIN 4.6 GM/DL (3.2-5.2); ALT/SGPT 32 U/L (12-78); BILIRUBIN,TOTAL 0.4 MG/DL (0.2-1.0); BLOOD UREA NITROGEN 20 MG/DL (7-18); CALCIUM LEVEL 10.3 MG/DL (8.8-10.2); CARBON DIOXIDE LEVEL 32 MEQ/L (21-32); CHLORIDE LEVEL 104 MEQ/L (98-107); CREATININE FOR GFR 0.96 MG/DL (0.55-1.30); FREE T4 1.46 NG/DL (0.76-1.46); GLOMERULAR FILTRATION RATE 59.2 (>32); GLUCOSE, FASTING 94 MG/DL (70-100); SODIUM LEVEL 141 MEQ/L (136-145); TOTAL PROTEIN 7.2 GM/DL (6.4-8.2)
[2021-05-13 10:04] LABS: ALBUMIN 4.36 GM/DL (3.29-5.55); ALBUMIN % 60.5 % (55.8-66.1); ALPHA-1-GLOBULIN % 4.6 % (2.9-4.9); ALPHA-1-GLOBULINS 0.33 GM/DL (0.17-0.41); ALPHA-2-GLOBULINS 0.67 GM/DL (0.42-0.99); ALPHA-2-GLOBULINS % 9.3 % (7.1-11.8); BETA-1-GLOBULINS % 5.6 % (4.7-7.2); BETA-2-GLOBULINS 0.34 GM/DL (0.19-0.55); BETA-2-GLOBULINS % 4.7 % (3.2-6.5); GAMMA GLOBULIN % 15.3 % (11.1-18.8)
== END ==
LOC: M SFHCADAM 15:01
PROVIDERS: ATTEND Family Medicine
DX: R77.8 Other specified abnormalities of plasma proteins (principal); R70.1 Abnormal plasma viscosity; E03.9 Hypothyroidism, unspecified

== ENCOUNTER → 2021-08-16 | Outpatient (CLI) | payer MEDICARE, BC ==
[2021-08-16 09:49] LABS: HEMATOCRIT 35.8 % (36.0-47.0); HEMOGLOBIN 11.2 g/dl (12.0-15.5); MEAN CORPUSCULAR HEMOGLOBIN 29.5 pg (27.0-33.0); MEAN CORPUSCULAR HGB CONC 31.3 g/dl (32.0-36.5); MEAN CORPUSCULAR VOLUME 94.2 fl (80.0-96.0); PLATELET COUNT, AUTOMATED 221 10^3/uL (150-450); WHITE BLOOD COUNT 6.8 10^3/uL (4.0-10.0)
[2021-08-16 10:46] LABS: ALBUMIN 3.6 GM/DL (3.2-5.2); BILIRUBIN,TOTAL 0.3 MG/DL (0.2-1.0); CALCIUM LEVEL 8.4 MG/DL (8.8-10.2); CHOLESTEROL RISK RATIO 1.689 (<5); CREATININE FOR GFR 0.95 MG/DL (0.55-1.30); FREE T4 1.4 NG/DL (0.76-1.46); PERCENT SATURATION 19.6 % (13.2-45.0); POTASSIUM SERUM 4.4 MEQ/L (3.5-5.1); THYROID STIMULATING HORMONE 2.63 uIU/ML (0.358-3.740); TOTAL PROTEIN 6.2 GM/DL (6.4-8.2)
== END ==
LOC: M LAB 09:10
PROVIDERS: ATTEND Family Medicine
DX: E03.9 Hypothyroidism, unspecified (principal); D50.9 Iron deficiency anemia, unspecified

== ENCOUNTER → 2021-11-03 | Outpatient (CLI) | payer MEDICARE, BC | LOC: M LABSMTC 09:02 | PROVIDERS: ATTEND Anesthesiology | DX: Z01.818 Encounter for other preprocedural examination (principal); Z11.52 Encounter for screening for COVID-19 ==

== ENCOUNTER 2021-11-06 10:23 | Day surgery (SDC) | payer MEDICARE, BC ==
[~2021-11-06] VITALS: Ht 165.1 cm; Wt 64.9 kg
[~2021-11-06 10:23] MED LIST changes: +NS 1,000 ML IV ONE
[2021-11-06] MEDS ORDERED: propofoL 500 MG/50 ML VIAL As Ordered ONE (12:55)
[2021-11-06] MEDS ORDERED: LIDOCAINE 2% 100MG/5ML SDV (FOR ANES.) As Ordered ONE (12:55)
[2021-11-06 13:05] VITALS: BP 119/58
== END 2021-11-06 13:09 | disposition home or self-care (01) ==
LOC: M OPP 10:23
PROVIDERS: ATTEND Internal Medicine Gastroenterology
DX: K64.0 First degree hemorrhoids (principal); K57.30 Diverticulosis of large intestine without perforation or abscess without bleeding; D50.9 Iron deficiency anemia, unspecified; Z79.01 Long term (current) use of anticoagulants; Z79.82 Long term (current) use of aspirin; Z79.83 Long term (current) use of bisphosphonates; Z79.899 Other long term (current) drug therapy; Z88.2 Allergy status to sulfonamides; Z88.8 Allergy status to other drugs, medicaments and biological substances; I25.810 Atherosclerosis of coronary artery bypass graft(s) without angina pectoris; E78.00 Pure hypercholesterolemia, unspecified; E03.9 Hypothyroidism, unspecified; Z87.891 Personal history of nicotine dependence; Z85.828 Personal history of other malignant neoplasm of skin

== ENCOUNTER → 2021-12-31 | Outpatient (CLI) | payer MEDICARE, BC ==
[~2021-12-31] MED LIST changes: -NS 1,000 ML IV ONE
== END ==
LOC: M WHC 14:54
PROVIDERS: ATTEND Family Medicine
DX: Z12.31 Encounter for screening mammogram for malignant neoplasm of breast (principal)

== ENCOUNTER → 2022-03-24 | Outpatient (REF) | payer MEDICARE, BC | LOC: M SFHCDERM 14:15 | PROVIDERS: ATTEND Nurse Practitioner Family | DX: L57.0 Actinic keratosis (principal) ==

== ENCOUNTER → 2022-05-29 | Outpatient (REF) | payer MEDICARE, BC | LOC: M LAB REF 12:00 | PROVIDERS: ATTEND Physician Assistant | DX: B34.9 Viral infection, unspecified (principal) ==

== ENCOUNTER → 2022-07-02 | Outpatient (CLI) | payer MEDICARE, BC ==
[~2022-07-02] MED LIST changes: +CLOP75TA2; +FURO20TA2 PO
== END ==
LOC: M RAD 17:41
PROVIDERS: ATTEND Student in an Organized Health Care Education/Training Program
DX: M79.672 Pain in left foot (principal)

== ENCOUNTER → 2022-07-29 | Outpatient (REF) | payer MEDICARE, BC ==
[2022-07-29 13:33] LABS: HEMATOCRIT 42.3 % (36.0-47.0); HEMOGLOBIN 13.5 g/dl (12.0-15.5); MEAN CORPUSCULAR HGB CONC 31.9 g/dl (32.0-36.5); PLATELET COUNT, AUTOMATED 213 10^3/uL (150-450); RED BLOOD COUNT 4.65 10^6/uL (4.00-5.40); WHITE BLOOD COUNT 6.9 10^3/uL (4.0-10.0)
[2022-07-29 13:40] LABS: THYROID STIMULATING HORMONE 2.339 uIU/ML (0.55-4.78)
[2022-07-29 13:41] LABS: FREE T4 1.13 NG/DL (0.89-1.76)
[2022-07-29 13:42] LABS: CHOLESTEROL RISK RATIO 1.9 (<5); HDL CHOLESTEROL 51.9 MG/DL (>40); LDL CHOLESTEROL 28.3 MG/DL (<100); NON-HDL-C 47.1 MG/DL
== END ==
LOC: M SFHCADAM 08:45
PROVIDERS: ATTEND Family Medicine
DX: D50.9 Iron deficiency anemia, unspecified (principal); E03.9 Hypothyroidism, unspecified; I25.10 Atherosclerotic heart disease of native coronary artery without angina pectoris; E78.2 Mixed hyperlipidemia

== ENCOUNTER → 2022-09-05 | Outpatient (REF) | payer MEDICARE, BC ==
[~2022-09-05] MED LIST changes: +AZIT500T5 PO; +MAGN400C PO
== END ==
LOC: M LAB REF 10:30
PROVIDERS: ATTEND Physician Assistant
DX: R19.7 Diarrhea, unspecified (principal)

== ENCOUNTER → 2022-09-19 | Outpatient (REF) | payer MEDICARE, BC ==
[2022-09-19 13:46] LABS: HEMATOCRIT 44.4 % (36.0-47.0); HEMOGLOBIN 14.7 g/dl (12.0-15.5); MEAN CORPUSCULAR HEMOGLOBIN 29.4 pg (27.0-33.0); MEAN CORPUSCULAR HGB CONC 33.1 g/dl (32.0-36.5); MEAN CORPUSCULAR VOLUME 88.8 fl (80.0-96.0); PLATELET COUNT, AUTOMATED 280 10^3/uL (150-450); WHITE BLOOD COUNT 7.9 10^3/uL (4.0-10.0)
[2022-09-19 13:47] LABS: ALBUMIN 3.8 G/DL (3.2-5.2); ALKALINE PHOSPHATASE 131 U/L (46-116); ALT/SGPT 13 U/L (7.0-40); AST/SGOT 16 U/L (<34); BILIRUBIN,TOTAL 0.7 MG/DL (0.3-1.2); BLOOD UREA NITROGEN 9 MG/DL (9-23); CALCIUM LEVEL 9.2 MG/DL (8.3-10.6); CARBON DIOXIDE LEVEL 27 MMOL/L (20-31); CHLORIDE LEVEL 98 MMOL/L (98-107); CREATININE FOR GFR 0.81 MG/DL (0.55-1.30); GLOMERULAR FILTRATION RATE > 60.0 (>32); GLUCOSE, FASTING 87 MG/DL (74-106); POTASSIUM SERUM 4.5 MMOL/L (3.5-5.1); SODIUM LEVEL 133 MMOL/L (136-145); TOTAL PROTEIN 6.5 G/DL (5.7-8.2)
== END ==
LOC: M SFHCADAM 10:57
PROVIDERS: ATTEND Family Medicine
DX: K52.9 Noninfective gastroenteritis and colitis, unspecified (principal); E61.2 Magnesium deficiency

== ENCOUNTER 2022-10-19 11:40 | Emergency (ER) | payer MEDICARE, BC ==
[~2022-10-19] VITALS: Ht 165.1 cm; Wt 59.1 kg
[2022-10-19 11:40] VITALS: TEMP 98.5
[2022-10-19] MEDS ORDERED: wheel chair (14:57)
[2022-10-19 15:06] VITALS: BP 145/65; O2SAT 98
== END 2022-10-19 15:09 | disposition home or self-care (01) ==
LOC: M ED 11:40
DX: S82.64XA Nondisplaced fracture of lateral malleolus of right fibula, initial encounter for closed fracture (principal); S92.354A Nondisplaced fracture of fifth metatarsal bone, right foot, initial encounter for closed fracture; W19.XXXA Unspecified fall, initial encounter; Y92.009 Unspecified place in unspecified non-institutional (private) residence as the place of occurrence of the external cause; E03.9 Hypothyroidism, unspecified; I48.91 Unspecified atrial fibrillation; I25.2 Old myocardial infarction; Z88.8 Allergy status to other drugs, medicaments and biological substances; Z88.2 Allergy status to sulfonamides; Z79.899 Other long term (current) drug therapy; Z79.82 Long term (current) use of aspirin

== ENCOUNTER → 2022-12-01 | Outpatient (CLI) | payer MEDICARE, BC ==
[~2022-12-01] MED LIST changes: +wheel chair
[2022-12-01 13:33] LABS: BASO % 0.4 % (0.0-1.0); EOS # 0.1 10^3/uL (0.0-0.5); EOS % 1.6 % (0.0-3.0); HEMATOCRIT 39.6 % (36.0-47.0); LYMPH % 12.1 % (24.0-44.0); MEAN CORPUSCULAR HEMOGLOBIN 31.6 pg (27.0-33.0); MEAN CORPUSCULAR HGB CONC 32.8 g/dl (32.0-36.5); MEAN CORPUSCULAR VOLUME 96.4 fl (80.0-96.0); MONO # 0.9 10^3/uL (0.0-0.8); MONO % 10.4 % (2.0-8.0); NEUTROPHILS # 6.2 10^3/uL (1.5-8.5); NEUTROPHILS % 75.1 % (36.0-66.0); PLATELET COUNT, AUTOMATED 194 10^3/uL (150-450); RED BLOOD COUNT 4.11 10^6/uL (4.00-5.40); WHITE BLOOD COUNT 8.3 10^3/uL (4.0-10.0)
[2022-12-01 13:44] LABS: C REACTIVE PROTEIN QUANTITATIV 1.1 MG/DL (<1.0)
[2022-12-01 13:55] LABS: URIC ACID 4.3 MG/DL (3.1-7.8)
[2022-12-01 14:19] LABS: ERYTHROCYTE SEDIMENTATION RATE 11 mm/hr (0-30)
== END ==
LOC: M PLALAB 10:03
PROVIDERS: ATTEND Physician Assistant Surgical
DX: M19.042 Primary osteoarthritis, left hand (principal); M10.042 Idiopathic gout, left hand

== ENCOUNTER → 2023-01-29 | Outpatient (CLI) | payer MEDICARE, BC ==
[2023-01-29 09:32] LABS: HEMOGLOBIN 14.5 g/dl (12.0-15.5); MEAN CORPUSCULAR HEMOGLOBIN 30.8 pg (27.0-33.0); MEAN CORPUSCULAR HGB CONC 32.2 g/dl (32.0-36.5); MEAN CORPUSCULAR VOLUME 95.5 fl (80.0-96.0); PLATELET COUNT, AUTOMATED 206 10^3/uL (150-450); RED BLOOD COUNT 4.71 10^6/uL (4.00-5.40); WHITE BLOOD COUNT 6.5 10^3/uL (4.0-10.0)
[2023-01-29 10:00] LABS: IRON (FE) 86 UG/DL (50-170)
[2023-01-29 10:37] LABS: PERCENT SATURATION 33.1 % (13.2-45.0); TOTAL IRON BINDING CAPACITY 260 UG/DL (250-425)
[2023-01-29 10:54] LABS: FERRITIN 259.7 NG/ML (7.3-270.7); FREE T4 1.28 NG/DL (0.89-1.76); THYROID STIMULATING HORMONE 3.022 uIU/ML (0.55-4.78)
[2023-01-29 11:02] LABS: ALBUMIN 3.1 G/DL (3.2-5.2); ALKALINE PHOSPHATASE 170 U/L (46-116); ALT/SGPT 28 U/L (7.0-40); AST/SGOT 31 U/L (<34); BILIRUBIN,TOTAL 0.7 MG/DL (0.3-1.2); BLOOD UREA NITROGEN 12 MG/DL (9-23); CALCIUM LEVEL 9.5 MG/DL (8.3-10.6); CARBON DIOXIDE LEVEL 29 MMOL/L (20-31); CHLORIDE LEVEL 108 MMOL/L (98-107); CHOLESTEROL LEVEL 126 MG/DL (<200); CHOLESTEROL RISK RATIO 2.18 (<5); CREATININE FOR GFR 0.84 MG/DL (0.55-1.30); GLOMERULAR FILTRATION RATE > 60.0 (>32); GLUCOSE, FASTING 92 MG/DL (74-106); HDL CHOLESTEROL 57.6 MG/DL (>40); NON-HDL-C 68.4 MG/DL; POTASSIUM SERUM 4.8 MMOL/L (3.5-5.1); SODIUM LEVEL 141 MMOL/L (136-145); TOTAL PROTEIN 6.3 G/DL (5.7-8.2); TRIGLYCERIDES LEVEL 82 MG/DL (<150)
== END ==
LOC: M LAB 09:00
PROVIDERS: ATTEND Family Medicine
DX: I25.10 Atherosclerotic heart disease of native coronary artery without angina pectoris (principal); E03.9 Hypothyroidism, unspecified; I48.91 Unspecified atrial fibrillation; Z95.818 Presence of other cardiac implants and grafts; D50.9 Iron deficiency anemia, unspecified; A07.8 Other specified protozoal intestinal diseases

== ENCOUNTER → 2023-03-13 | Outpatient (CLI) | payer MEDICARE, BC ==
[2023-03-13 12:33] LABS: C REACTIVE PROTEIN QUANTITATIV < 0.40 MG/DL (<1.0)
[2023-03-13 12:34] LABS: ALBUMIN 3.9 G/DL (3.2-5.2); ALKALINE PHOSPHATASE 208 U/L (46-116); ALT/SGPT 30 U/L (7.0-40); AST/SGOT 28 U/L (<34); BILIRUBIN,TOTAL 0.7 MG/DL (0.3-1.2); BLOOD UREA NITROGEN 18 MG/DL (9-23); CALCIUM LEVEL 9.4 MG/DL (8.3-10.6); CARBON DIOXIDE LEVEL 29 MMOL/L (20-31); CHLORIDE LEVEL 105 MMOL/L (98-107); CREATININE FOR GFR 0.81 MG/DL (0.55-1.30); GLOMERULAR FILTRATION RATE > 60.0 (>32); GLUCOSE, FASTING 100 MG/DL (74-106); POTASSIUM SERUM 4.2 MMOL/L (3.5-5.1); SODIUM LEVEL 140 MMOL/L (136-145); TOTAL PROTEIN 6.5 G/DL (5.7-8.2)
== END ==
LOC: M LAB 11:33
PROVIDERS: ATTEND Family Medicine
DX: R63.4 Abnormal weight loss (principal)

== ENCOUNTER → 2023-03-17 | Outpatient (CLI) | payer MEDICARE, BC | LOC: M PLAIMG 12:33 | PROVIDERS: ATTEND Physician Assistant Surgical | DX: S92.354G Nondisplaced fracture of fifth metatarsal bone, right foot, subsequent encounter for fracture with delayed healing (principal) ==

== ENCOUNTER → 2023-05-13 | Outpatient (CLI) | payer MEDICARE, BC | LOC: M RAD 12:56 | PROVIDERS: ATTEND Physician Assistant | DX: I65.23 Occlusion and stenosis of bilateral carotid arteries (principal) ==

== ENCOUNTER → 2023-06-23 | Outpatient (CLI) | payer MEDICARE, BC ==
[~2023-06-23] MED LIST changes: +METO200T15 PO; -METO200T28 PO; +REPA140I2
[2023-06-23 10:54] LABS: HEMATOCRIT 39.6 % (36.0-47.0); MEAN CORPUSCULAR HGB CONC 32.8 g/dl (32.0-36.5); MEAN CORPUSCULAR VOLUME 94.3 fl (80.0-96.0); PLATELET COUNT, AUTOMATED 139 10^3/uL (150-450); WHITE BLOOD COUNT 6.9 10^3/uL (4.0-10.0)
[2023-06-23 11:28] LABS: ALBUMIN 3.4 G/DL (3.2-5.2); ALKALINE PHOSPHATASE 194 U/L (46-116); ALT/SGPT 34 U/L (7.0-40); AST/SGOT 35 U/L (<34); BILIRUBIN,TOTAL 0.9 MG/DL (0.3-1.2); BLOOD UREA NITROGEN 12 MG/DL (9-23); CALCIUM LEVEL 9.1 MG/DL (8.3-10.6); CARBON DIOXIDE LEVEL 28 MMOL/L (20-31); CHLORIDE LEVEL 107 MMOL/L (98-107); CHOLESTEROL LEVEL 101 MG/DL (<200); CHOLESTEROL RISK RATIO 1.63 (<5); CREATININE FOR GFR 0.78 MG/DL (0.55-1.30); GLOMERULAR FILTRATION RATE > 60.0 (>32); GLUCOSE, FASTING 85 MG/DL (74-106); HDL CHOLESTEROL 61.8 MG/DL (>40); IRON (FE) 102 UG/DL (50-170); LDL CHOLESTEROL 18.6 MG/DL (<100); NON-HDL-C 39.2 MG/DL; PERCENT SATURATION 34.8 % (13.2-45.0); POTASSIUM SERUM 4.3 MMOL/L (3.5-5.1); SODIUM LEVEL 141 MMOL/L (136-145); TOTAL IRON BINDING CAPACITY 293 UG/DL (250-425); TOTAL PROTEIN 6.1 G/DL (5.7-8.2); TRIGLYCERIDES LEVEL 103 MG/DL (<150)
[2023-06-23 11:29] LABS: FERRITIN 218.8 NG/ML (7.3-270.7); THYROID STIMULATING HORMONE 4.496 uIU/ML (0.55-4.78); TOTAL 25(OH) VITAMIN D 62.1 NG/ML (20.0-100.0)
[2023-06-23 11:30] LABS: FREE T4 1.36 NG/DL (0.89-1.76)
== END ==
LOC: M LAB 10:11
PROVIDERS: ATTEND Family Medicine
DX: D50.9 Iron deficiency anemia, unspecified (principal); E07.9 Disorder of thyroid, unspecified; E78.00 Pure hypercholesterolemia, unspecified

== ENCOUNTER → 2023-07-27 | Outpatient (REF) | payer MEDICARE, BC | LOC: M SFHCDERM 17:18 | PROVIDERS: ATTEND Physician Assistant | DX: C44.529 Squamous cell carcinoma of skin of other part of trunk (principal) ==

== ENCOUNTER → 2023-08-21 | Outpatient (REF) | payer MEDICARE, BC | LOC: M SFHCDERM 17:04 | PROVIDERS: ATTEND Physician Assistant | DX: D48.9 Neoplasm of uncertain behavior, unspecified (principal) ==

== ENCOUNTER 2023-10-10 01:33 | Emergency (ER) | payer MEDICARE, BC ==
[~2023-10-10] VITALS: Ht 166.4 cm; Wt 64.9 kg
[2023-10-10 01:33] VITALS: BP 145/66; TEMP 98.1; O2SAT 95
== END 2023-10-10 02:11 | disposition home or self-care (01) ==
LOC: M ED 01:33
DX: T16.1XXA Foreign body in right ear, initial encounter (principal); E78.5 Hyperlipidemia, unspecified; I48.91 Unspecified atrial fibrillation; Z88.2 Allergy status to sulfonamides; Z88.8 Allergy status to other drugs, medicaments and biological substances; Z91.09 Other allergy status, other than to drugs and biological substances; Z79.1 Long term (current) use of non-steroidal anti-inflammatories (NSAID); Z79.899 Other long term (current) drug therapy; Z79.810 Long term (current) use of selective estrogen receptor modulators (SERMs)

== ENCOUNTER → 2024-01-25 | Outpatient (CLI) | payer MEDICARE, BC | LOC: M WHC 10:51 | PROVIDERS: ATTEND Family Medicine | DX: Z12.31 Encounter for screening mammogram for malignant neoplasm of breast (principal) ==

== ENCOUNTER → 2024-04-04 | Outpatient (CLI) | payer MEDICARE, BC ==
[~2024-04-04] MED LIST changes: -ALIG4CAP PO; +ALIG4CAP3 PO
[2024-04-04 14:46] LABS: HEMATOCRIT 40.5 % (36.0-47.0); HEMOGLOBIN 13.2 g/dl (12.0-15.5); MEAN CORPUSCULAR HEMOGLOBIN 30.8 pg (27.0-33.0); MEAN CORPUSCULAR HGB CONC 32.6 g/dl (32.0-36.5); MEAN CORPUSCULAR VOLUME 94.6 fl (80.0-96.0); PLATELET COUNT, AUTOMATED 147 10^3/uL (150-450); RED BLOOD COUNT 4.28 10^6/uL (4.00-5.40)
[2024-04-04 15:55] LABS: BLOOD UREA NITROGEN 13 MG/DL (9-23); CALCIUM LEVEL 9.9 MG/DL (8.3-10.6); CARBON DIOXIDE LEVEL 26 MMOL/L (20-31); CHLORIDE LEVEL 103 MMOL/L (98-107); CREATININE FOR GFR 0.75 MG/DL (0.55-1.30); GLOMERULAR FILTRATION RATE > 60.0 (>32); GLUCOSE, FASTING 94 MG/DL (74-106); POTASSIUM SERUM 4.3 MMOL/L (3.5-5.1); SODIUM LEVEL 140 MMOL/L (136-145)
== END ==
LOC: M LAB 13:06
PROVIDERS: ATTEND Nurse Practitioner Family
DX: I25.10 Atherosclerotic heart disease of native coronary artery without angina pectoris (principal); I50.9 Heart failure, unspecified

== ENCOUNTER → 2024-05-06 | Outpatient (REF) | payer MEDICARE, BC ==
[~2024-05-06] MED LIST changes: +DENO60SY2 SC; -PROL60SO SC
== END ==
LOC: M SFHCDERM 16:35
PROVIDERS: ATTEND Nurse Practitioner Family
DX: L57.0 Actinic keratosis (principal); L57.8 Other skin changes due to chronic exposure to nonionizing radiation

== ENCOUNTER → 2024-07-07 | Outpatient (CLI) | payer MEDICARE, BC ==
[2024-07-07 09:25] LABS: HEMOGLOBIN 13.1 g/dl (12.0-15.5); MEAN CORPUSCULAR HGB CONC 32.8 g/dl (32.0-36.5); MEAN CORPUSCULAR VOLUME 94.6 fl (80.0-96.0); PLATELET COUNT, AUTOMATED 169 10^3/uL (150-450); RED BLOOD COUNT 4.23 10^6/uL (4.00-5.40); WHITE BLOOD COUNT 6.6 10^3/uL (4.0-10.0)
[2024-07-07 09:52] LABS: PERCENT SATURATION 40.8 % (13.2-45.0)
[2024-07-07 09:53] LABS: ALBUMIN 3.7 G/DL (3.2-5.2); CALCIUM LEVEL 9.1 MG/DL (8.3-10.6); CHOLESTEROL RISK RATIO 1.81 (<5); CREATININE FOR GFR 0.8 MG/DL (0.55-1.30); GLOMERULAR FILTRATION RATE 72.2 (>32); HDL CHOLESTEROL 67.2 MG/DL (>40); LDL CHOLESTEROL 41.6 MG/DL (<100); NON-HDL-C 54.8 MG/DL; POTASSIUM SERUM 4.2 MMOL/L (3.5-5.1); THYROID STIMULATING HORMONE 4.2 uIU/ML (0.55-4.78); TOTAL 25(OH) VITAMIN D 65.5 NG/ML (20.0-100.0); TOTAL PROTEIN 6.3 G/DL (5.7-8.2)
[2024-07-07 09:54] LABS: FREE T4 1.31 NG/DL (0.89-1.76)
== END ==
LOC: M LAB 08:27
PROVIDERS: ATTEND Family Medicine
DX: D50.9 Iron deficiency anemia, unspecified (principal); E55.9 Vitamin D deficiency, unspecified; R74.8 Abnormal levels of other serum enzymes; E03.9 Hypothyroidism, unspecified; I25.10 Atherosclerotic heart disease of native coronary artery without angina pectoris; E78.2 Mixed hyperlipidemia

== ENCOUNTER → 2024-09-19 | Outpatient (CLI) | payer MEDICARE, BC | LOC: M PLAIMG 12:42 | PROVIDERS: ATTEND Family Medicine | DX: I08.1 Rheumatic disorders of both mitral and tricuspid valves (principal); I27.20 Pulmonary hypertension, unspecified ==

== ENCOUNTER 2024-11-09 02:17 | Emergency (ER) | payer MEDICARE, BC ==
[~2024-11-09] VITALS: Ht 165.1 cm; Wt 63.0 kg
[2024-11-09] MEDS: KETOROLAC 30 MG/ML 1 ML VIAL IV ONE (05:00)
[2024-11-09 05:09] LABS: BASO # 0.0 10^3/uL (0.0-0.2); BASO % 0.4 % (0.0-1.0); EOS # 0.1 10^3/uL (0.0-0.5); EOS % 1.5 % (0.0-3.0); LYMPH # 1.2 10^3/uL (1.5-5.0); LYMPH % 15.3 % (24.0-44.0); MONO # 0.8 10^3/uL (0.0-0.8); MONO % 10.6 % (2.0-8.0); NEUTROPHILS # 5.5 10^3/uL (1.5-8.5); NEUTROPHILS % 71.9 % (36.0-66.0); PLATELET COUNT, AUTOMATED 175 10^3/uL (150-450)
[2024-11-09 05:13] LABS: ERYTHROCYTE SEDIMENTATION RATE 19 mm/hr (0-30)
[2024-11-09 06:16] LABS: C REACTIVE PROTEIN QUANTITATIV < 0.50 MG/DL (<1.0)
[2024-11-09 06:17] LABS: CALCIUM LEVEL 9.6 MG/DL (8.3-10.6); CARBON DIOXIDE LEVEL 26 MMOL/L (20-31); CHLORIDE LEVEL 104 MMOL/L (98-107); CREATININE FOR GFR 0.88 MG/DL (0.55-1.30); GLOMERULAR FILTRATION RATE 64.4 (>32); POTASSIUM SERUM 4.1 MMOL/L (3.5-5.1); SODIUM LEVEL 137 MMOL/L (136-145)
[2024-11-09] MEDS ORDERED: CARB10TACH PO (08:30)
[2024-11-09] MEDS: carBAMazepine 100 MG *1/2* TABLET PO ONE (09:16)
[2024-11-09 09:23] VITALS: BP 144/68; TEMP 96.6; O2SAT 99
== END 2024-11-09 09:23 | disposition home or self-care (01) ==
LOC: M ED 02:17
DX: G50.0 Trigeminal neuralgia (principal); I48.91 Unspecified atrial fibrillation; I25.119 Atherosclerotic heart disease of native coronary artery with unspecified angina pectoris; I10 Essential (primary) hypertension; E03.9 Hypothyroidism, unspecified; E78.00 Pure hypercholesterolemia, unspecified; Z88.2 Allergy status to sulfonamides; Z88.8 Allergy status to other drugs, medicaments and biological substances; Z91.09 Other allergy status, other than to drugs and biological substances; Z79.1 Long term (current) use of non-steroidal anti-inflammatories (NSAID); Z79.899 Other long term (current) drug therapy; Z79.810 Long term (current) use of selective estrogen receptor modulators (SERMs)
CPT/HCPCS: 70450; 80048; 85025; 85652; 86140; 96374; 99284; J1885

== ENCOUNTER → 2024-11-29 | Outpatient (CLI) | payer MEDICARE, BC ==
[~2024-11-29] MED LIST changes: +CARB10TACH PO
[2024-11-29 11:30] LABS: PLATELET COUNT, AUTOMATED 193 10^3/uL (150-450)
[2024-11-29 15:02] LABS: FREE T4 1.44 NG/DL (0.89-1.76)
[2024-11-29 15:04] LABS: ALT/SGPT 20.0 U/L (7.0-40); AST/SGOT 30.0 U/L (<34); CALCIUM LEVEL 9.4 MG/DL (8.3-10.6); CARBON DIOXIDE LEVEL 27.0 MMOL/L (20-31); CHLORIDE LEVEL 102.0 MMOL/L (98-107); CHOLESTEROL LEVEL 123.0 MG/DL (<200); CHOLESTEROL RISK RATIO 2.07 (<5); CREATININE FOR GFR 0.88 MG/DL (0.55-1.30); GLOMERULAR FILTRATION RATE 64.4 (>32); LDL CHOLESTEROL 50.0 MG/DL (<100); NON-HDL-C 63.8 MG/DL; POTASSIUM SERUM 4.5 MMOL/L (3.5-5.1); SODIUM LEVEL 139.0 MMOL/L (136-145); TRIGLYCERIDES LEVEL 69.0 MG/DL (<150)
== END ==
LOC: M LAB 08:56
PROVIDERS: ATTEND Family Medicine
DX: I25.10 Atherosclerotic heart disease of native coronary artery without angina pectoris (principal); I48.91 Unspecified atrial fibrillation; E78.2 Mixed hyperlipidemia; E03.9 Hypothyroidism, unspecified; D50.9 Iron deficiency anemia, unspecified